=== PATIENT | female | born 1945 | race Caucasian/White ===

== ENCOUNTER 2018-05-15 11:17 | Inpatient (IN) | payer MEDICARE, OTHER ==
[2018-05-15] MEDS ORDERED: Alum Hydrox/Mag Hydrox/Simeth 15 ML, Lidocaine 2% 15 ML PO ONE ×2 (12:50)
[2018-05-15] MEDS ORDERED: Ondansetron 4 MG/2 ML SDV IVPUSH ONE (12:51)
--- NOTE | 2018-05-15 12:53 | EDM.PDOC ---
ED HPI GENERAL MEDICAL PROBLEM - General Chief Complaint: Lower Extremity Injury/Pain Stated Complaint: RT HIP PAIN, NO FALL/VOMITTING-PAIN MED RELATED? Time Seen by Provider: 05/15/18 12:33 Source of Information: Reports: Patient History Limitations: Reports: No Limitations - History of Present Illness INITIAL COMMENTS - FREE TEXT/NARRATIVE: 73 yo female presents to the ER c/o right hip pain and n/v. She was recently seen in [facility] for like symptoms, per pt she was dx with viral symdrome with left hip lymphedema. She was dced on hydrocodone after IV fluids per pt. Last fever 102 on Wednesday. She has been taking pain medication since visit last dose last evening. nausea with vomiting last 48 hours. pain continues in right hip. denies trauma to hip. - Related Data Allergies Allergy/AdvReac Type Severity Reaction Status Date / Time sulfamethoxazole Allergy Hives Verified 05/15/18 12:04 [From Bactrim] trimethoprim [From Bactrim] Allergy Hives Verified 05/15/18 12:04 Home Meds: Home Meds Aspirin 1 tab PO DAILY 05/15/18 [History] Hydrocodone/Acetaminophen [Hydrocodon-Acetaminophen 5-300] 1 tab PO Q6HR PRN [History] atorvaSTATin [Lipitor] 1 tab PO DAILY 05/15/18 [History] Past Medical History Musculoskeletal History: Reports: Back Pain, Chronic - Past Surgical History HEENT Surgical History: Reports: Tonsillectomy Social & Family History - Tobacco Use Smoking Status *Q: Never Smoker Review of Systems - Review of Systems Review Of Systems: See Below Respiratory: Denies: Shortness of Breath, Wheezing Cardiovascular: Denies: Chest Pain GI/Abdominal: Reports: Abdominal Pain, Nausea, Vomiting Musculoskeletal: Reports: Joint Pain Neurological: Denies: Confusion, Dizziness, Headache ED EXAM, GENERAL - Physical Exam Exam: See Below Exam Limited By: No Limitations General Appearance: Alert, WD/WN, Mild Distress Head: Atraumatic, Normocephalic Neck: Normal Inspection, Supple, Non-Tender, Full Range of Motion Respiratory/Chest: No Respiratory Distress, Lungs Clear GI/Abdominal: Normal Bowel Sounds, Soft, Tender (epigastric) Extremities: Leg Pain (right hip, ROM WNL). No: Joint Swelling Psychiatric: Normal Affect, Normal Mood Skin Exam: Warm, Dry, Intact Course - Vital Signs Last Recorded V/S: Last Vital Signs Temp 37.2 C 05/15/18 17:00 Pulse 75 05/15/18 17:39 Resp 20 05/15/18 17:39 BP 97/44 L 05/15/18 17:39 Pulse Ox 88 L 05/15/18 17:39 - Orders/Labs/Meds Orders: Active Orders 24 hr Category Date Time Status Ang Chest [CT] Stat Exams 05/15/18 16:23 Taken Chest 2V [CR] Stat Exams 05/15/18 15:37 Taken BABESIA MICROTI ANTIBODY PANEL Urgent Lab 05/15/18 14:13 Received HUMAN GRANULOCYTIC MASOOD-HGE Stat Lab 05/15/18 14:13 Received UA W/MICROSCOPIC [URIN] Stat Lab 05/15/18 12:53 Ordered Medication Orders Acetaminophen (Tylenol) 650 mg PO Q4H PRN PRN Reason: Pain (Mild 1-3)/fever Atorvastatin Calcium (Lipitor) 40 mg PO DAILY MAURA Hydromorphone HCl (Dilaudid) 0.25 mg IVPUSH Q2H PRN PRN Reason: Pain Ampicillin Sodium/Sulbactam (Sodium 1.5 gm/ Sodium Chloride) 50 mls @ 100 mls/ hr IV Q6HR MAURA Lactated Ringer's (Ringers, Lactated) 1,000 mls @ 250 mls/hr IV ASDIRECTED [facility] Stop: 05/15/18 21:17 Lactated Ringer's (Ringers, Lactated) 1,000 mls @ 125 mls/hr IV ASDIRECTED [facility] Iopamidol (Isovue-370 (76%)) 100 ml IV . DIRECTED [facility] Last Admin: 05/15/18 16:54 Dose: 80 ml Magnesium Hydroxide (Milk Of Magnesia) 30 ml PO Q12H PRN PRN Reason: Constipation Ondansetron HCl (Zofran) 4 mg IV Q4H PRN PRN Reason: Nausea/Vomiting Oxycodone HCl (Oxycodone) 5 mg PO Q4H PRN PRN Reason: Pain (moderate 4-6) Polyethylene Glycol (Miralax) 17 gm PO DAILY PRN PRN Reason: Constipation Senna/Docusate Sodium (Senna Plus) 1 tab PO BID PRN PRN Reason: Constipation Sodium Chloride (Saline Flush) 10 ml FLUSH ASDIRECTED PRN PRN Reason: Keep Vein Open Labs: Laboratory Tests 05/15/18 05/15/18 05/15/18 Range/Units 13:00 13:00 13:00 WBC 10.3 (4.5-11.0) K/uL RBC 4.33 (3.30-5.50) M/uL Hgb 13.5 (12.0-15.0) g/dL Hct 39.8 (36.0-48.0) % MCV 92 (80-98) fL MCH 31 (27-31) pg MCHC 34 (32-36) % Plt Count 141 L (150-400) K/uL Add Manual Diff Yes Neutrophils % (Manual) 72 H (36-66) % Band Neutrophils % 16 H (5-11) % Lymphocytes % (Manual) 5 L (24-44) % Monocytes % (Manual) 6 (2-6) % Puncture Site ABG pH (7.350-7.450) ABG pCO2 (35.0-42.0) mmHg ABG pO2 (75.0-100.0) mmHg ABG HCO3 (22.0-26.0) mmol/L ABG Total CO2 (21.0-25.0) mmol/L ABG O2 Saturation (95.0-98.0) % ABG O2 Content (15.0-23.0) %vol ABG Base Excess mm/L ABG Hemoglobin (12.0-16.0) g/dL ABG Oxyhemoglobin % ABG Carboxyhemoglobin (0.0-1.6) % ABG Methemoglobin % Nick Test O2 Delivery Device Sodium (140-148) mmol/L Potassium (3.6-5.2) mmol/L Chloride (100-108) mmol/L Carbon Dioxide (21-32) mmol/L Anion Gap (5.0-14.0) mmol/L BUN (7-18) mg/dL Creatinine (0.6-1.0) mg/dL Est Cr Clr Drug Dosing mL/min Estimated GFR (MDRD) (>60) Glucose (74-106) mg/dL Lactic Acid 1.9 (0.4-2.0) mmol/L Calcium (8.5-10.1) mg/dL Total Bilirubin (0.2-1.0) mg/dL AST (15-37) U/L ALT (12-78) U/L Alkaline Phosphatase (46-116) U/L C-Reactive Protein 22.01 H (0.0-0.3) mg/dL Total Protein (6.4-8.2) g/dL Albumin (3.4-5.0) g/dL Globulin (2.3-3.5) g/dL Albumin/Globulin Ratio (1.2-2.2) Lipase (73-393) U/L 05/15/18 05/15/18 05/15/18 Range/Units 14:06 16:22 16:22 WBC (4.5-11.0) K/uL RBC (3.30-5.50) M/uL Hgb (12.0-15.0) g/dL Hct (36.0-48.0) % MCV (80-98) fL MCH (27-31) pg MCHC (32-36) % Plt Count (150-400) K/uL Add Manual Diff Neutrophils % (Manual) (36-66) % Band Neutrophils % (5-11) % Lymphocytes % (Manual) (24-44) % Monocytes % (Manual) (2-6) % Puncture Site Lt radial ABG pH 7.454 H (7.350-7.450) ABG pCO2 34.0 L (35.0-42.0) mmHg ABG pO2 54.6 L (75.0-100.0) mmHg ABG HCO3 23.5 (22.0-26.0) mmol/L ABG Total CO2 21.1 (21.0-25.0) mmol/L ABG O2 Saturation 88.7 L (95.0-98.0) % ABG O2 Content 14.7 L (15.0-23.0) %vol ABG Base Excess 0.5 mm/L ABG Hemoglobin 12.0 (12.0-16.0) g/dL ABG Oxyhemoglobin 87.3 % ABG Carboxyhemoglobin 1.2 (0.0-1.6) % ABG Methemoglobin 0.4 % Nick Test Passed O2 Delivery Device Nasal cannula Sodium 131 L (140-148) mmol/L Potassium 4.1 (3.6-5.2) mmol/L Chloride 96 L (100-108) mmol/L Carbon Dioxide 25 (21-32) mmol/L Anion Gap 14.1 H (5.0-14.0) mmol/L BUN 18 (7-18) mg/dL Creatinine 1.2 H (0.6-1.0) mg/dL Est Cr Clr Drug Dosing 44.29 mL/min Estimated GFR (MDRD) 44 L (>60) Glucose 132 H (74-106) mg/dL Lactic Acid (0.4-2.0) mmol/L Calcium 8.9 (8.5-10.1) mg/dL Total Bilirubin 2.0 H (0.2-1.0) mg/dL AST 72 H (15-37) U/L ALT 67 (12-78) U/L Alkaline Phosphatase 263 H (46-116) U/L C-Reactive Protein (0.0-0.3) mg/dL Total Protein 6.8 (6.4-8.2) g/dL Albumin 2.7 L (3.4-5.0) g/dL Globulin 4.1 H (2.3-3.5) g/dL Albumin/Globulin Ratio 0.7 L (1.2-2.2) Lipase 124 (73-393) U/L Meds: Medications Generic Name Dose Route Start Last Admin Trade Name Freq PRN Reason Stop Dose Admin Acetaminophen 650 mg 05/15/18 17:16 Tylenol PO Q4H PRN Pain (Mild 1-3)/fever Atorvastatin Calcium 40 mg 05/16/18 09:00 Lipitor PO DAILY MAURA Hydromorphone HCl 0.25 mg 05/15/18 17:16 Dilaudid IVPUSH Q2H PRN Pain Ampicillin Sodium/Sulbactam 50 mls @ 100 mls/hr 05/15/18 18:00 Sodium 1.5 gm/ Sodium Chloride IV Q6HR MAURA Lactated Ringer's 1,000 mls @ 250 mls/hr 05/15/18 17:16 Ringers, Lactated IV 05/15/18 21:17 ASDIRECTED MAURA Lactated Ringer's 1,000 mls @ 125 mls/hr 05/15/18 20:45 Ringers, Lactated IV ASDIRECTED MAURA Iopamidol 100 ml 05/15/18 16:30 05/15/18 16:54 Isovue-370 (76%) IV 80 ml . DIRECTED MAURA Administration Magnesium Hydroxide 30 ml 05/15/18 17:16 Milk Of Magnesia PO Q12H PRN Constipation Ondansetron HCl 4 mg 05/15/18 17:16 Zofran IV Q4H PRN Nausea/Vomiting Oxycodone HCl 5 mg 05/15/18 17:16 Oxycodone PO Q4H PRN Pain (moderate 4-6) Polyethylene Glycol 17 gm 05/15/18 17:16 Miralax PO DAILY PRN Constipation Senna/Docusate Sodium 1 tab 05/15/18 17:16 Senna Plus PO BID PRN Constipation Sodium Chloride 10 ml 05/15/18 17:16 Saline Flush FLUSH ASDIRECTED PRN Keep Vein Open Discontinued Medications Generic Name Dose Route Start Last Admin Trade Name Freq PRN Reason Stop Dose Admin Al Hydroxide/Mg Hydroxide 15 0 ml 05/15/18 12:50 05/15/18 13:05 ml/ Lidocaine HCl 15 ml PO 05/15/18 12:51 30 ml ONETIME ONE Administration Sodium Chloride 1,000 mls @ 999 mls/hr 05/15/18 13:00 05/15/18 13:05 Normal Saline IV 999 mls/hr ASDIRECTED MAURA Administration Sodium Chloride 100 mls @ 3 mls/sec 05/15/18 16:30 05/15/18 16:54 Normal Saline IV 3 mls/sec ASDIRECTED MAURA Administration Ketorolac Tromethamine 30 mg 05/15/18 14:40 05/15/18 15:00 Toradol IVPUSH 05/15/18 14:41 30 mg ONETIME ONE Administration Ondansetron HCl 4 mg 05/15/18 12:51 05/15/18 13:05 Zofran IVPUSH 05/15/18 12:52 4 mg ONETIME ONE Administration Departure - Departure Time of Disposition: 17:47 Disposition: Admitted As Inpatient 67 Condition: Fair Clinical Impression: Dehydration syndrome, Hyponatremia - Discharge Information - My Orders Last 24 Hours: My Active Orders 05/15/18 12:53 UA W/MICROSCOPIC [URIN] Stat 05/15/18 14:13 BABESIA MICROTI ANTIBODY PANEL Urgent HUMAN GRANULOCYTIC MASOOD-HGE Stat 05/15/18 15:37 Chest 2V [CR] Stat - Assessment/Plan Last 24 Hours: My Active Orders 05/15/18 12:53 UA W/MICROSCOPIC [URIN] Stat 05/15/18 14:13 BABESIA MICROTI ANTIBODY PANEL Urgent HUMAN GRANULOCYTIC MASOOD-HGE Stat 05/15/18 15:37 Chest 2V [CR] Stat
[2018-05-15] MEDS ORDERED: Sodium Chloride 0.9% 1,000 ML IV SCH (13:00)
[2018-05-15] MEDS ORDERED: Ketorolac 30 MG/ML SDV IVPUSH ONE (14:40)
[2018-05-15] MEDS ORDERED: Iopamidol 755 Mg/ML 100 ML Bottle IV SCH (16:30)
[2018-05-15] MEDS ORDERED: Sodium Chloride 0.9% 100 ML IV SCH (16:30)
[2018-05-15] MEDS ORDERED: Ondansetron 4 MG/2 ML SDV IV PRN (17:16)
[2018-05-15] MEDS ORDERED: oxyCODONE 5 MG Tab PO PRN (17:16)
[2018-05-15] MEDS ORDERED: Lactated Ringers 1,000 ML IV SCH (17:16)
[2018-05-15] MEDS ORDERED: Sodium Chloride 0.9% 10 ML Syringe FLUSH PRN (17:16)
[2018-05-15] MEDS ORDERED: Magnesium Hydroxide 400 MG/5 ML Susp 30 ML Cup PO PRN (17:16)
[2018-05-15] MEDS ORDERED: HYDROmorphone 0.5 MG/0.5 ML Syringe IVPUSH PRN (17:16)
[2018-05-15] MEDS: Ampicillin/Sulbactam Na 1.5 GM in Sodium Chloride 0.9% 50 ML IV SCH ×2 (18:29→21:58)
--- NOTE | 2018-05-15 18:50 | PCM.HP ---
H&P History of Present Illness - General Date of Service: 05/15/18 Admit Problem/Dx: Admission Diagnosis/Problem Admission Diagnosis/Problem Nausea and vomiting Source of Information: Patient, Family, Provider History Limitations: Reports: No Limitations - History of Present Illness Initial Comments - Free Text/Narative: Ms. Mancia is a 73-year-old woman who was admitted through the emergency department with hypoxia, nausea vomiting, and mild elevation in bilirubin level. She's not felt well over the past 3 days, with progressive symptoms. 3 days ago she was seen and evaluated in the emergency department in [facility]. At that time she did have a fever of 102. White blood cell count was normal and CT scan of the abdomen and pelvis showed evidence of mesenteric lymphadenopathy but no other obvious abnormalities. Laboratory tests at that time were within normal range. She also noted symptoms of right flank, lower lateral right chest wall pain. She had strained to pull a hose the previous day and felt that it may be muscular in nature related to that activity. She was felt to have a probable viral syndrome and discharged home. She felt worse through the day with increased nausea and vomiting and presented to urgent care later that evening. She was felt to be dehydrated and was admitted transiently for IV fluids. The following day on Wednesday they left [facility] and came to [place] for a family reunion. She has not felt well but has had no recurrent temperature elevations. Nausea vomiting as well as the right flank chest wall pain has persisted. In addition to nausea vomiting is also felt somewhat bloated, she has not had a bowel movement over the past 3 days, although her oral intake has been minimal. She presented to the emergency department here in [place] for further evaluation. She is noted to be significantly hypoxic with oxygen saturations on room air in the 60s and 70s. Chest x-ray was obtained and showed evidence of bilateral pulmonary infiltrates. CT scan of the chest with PE protocol has been obtained showing no evidence of pulmonary emboli, but did document bilateral interstitial infiltrates, infectious versus inflammatory. Also noted was mediastinal adenopathy. Her white blood cell count remains normal but she does have an obvious left shift with 16% bands. CRP is significantly elevated at 22, lactic acid level is within normal range. 9 Pain Score (Numeric/FACES): 1 - Related Data Allergies/Adverse Reactions: Allergies Allergy/AdvReac Type Severity Reaction Status Date / Time sulfamethoxazole Allergy Hives Verified 05/15/18 12:04 [From Bactrim] trimethoprim [From Bactrim] Allergy Hives Verified 05/15/18 12:04 Home Medications: Home Meds Aspirin 1 tab PO DAILY 05/15/18 [History] Hydrocodone/Acetaminophen [Hydrocodon-Acetaminophen 5-300] 1 tab PO Q6HR PRN [History] atorvaSTATin [Lipitor] 1 tab PO DAILY 05/15/18 [History] Past Medical History Musculoskeletal History: Reports: Back Pain, Chronic - Infectious Disease History Infectious Disease History: Reports: Chicken Pox, Measles, Mumps - Past Surgical History HEENT Surgical History: Reports: Tonsillectomy Social & Family History - Family History Respiratory: Reports: COPD GI: Reports: Other (See Below) Other GI Family History: "bleeding ulcers : Reports: Renal Calculus Musculoskeletal: Reports: Arthritis Neurological: Reports: Alzheimers Disease - Tobacco Use Smoking Status *Q: Never Smoker - Recreational Drug Use Recreational Drug Use: No H&P Review of Systems - Review of Systems: Review Of Systems: See Below General: Reports: Malaise, Weakness, Fatigue, Decreased Appetite. Denies: Fever , Chills, Diaphoresis HEENT: Reports: No Symptoms Pulmonary: Reports: Shortness of Breath. Denies: Wheezing, Cough, Sputum, Hemoptysis Cardiovascular: Reports: Dyspnea on Exertion. Denies: Chest Pain, Palpitations , Orthopnea, PND, Edema, Lightheadedness Gastrointestinal: Reports: Anorexia, Constipation, Distension, Nausea, Vomiting. Denies: Black Stool, Bloody Stool, Diarrhea, Difficulty Swallowing Genitourinary: Reports: No Symptoms Musculoskeletal: Reports: Other (Right flank and chest wall pain) Skin: Reports: No Symptoms Psychiatric: Reports: No Symptoms Neurological: Reports: No Symptoms Hematologic/Lymphatic: Reports: No Symptoms Immunologic: Reports: No Symptoms Exam - Exam Exam: See Below - Vital Signs Vital Signs: Last Vital Signs Temp 99 F 05/15/18 17:00 Pulse 77 05/15/18 18:33 Resp 26 H 05/15/18 18:33 BP 97/43 L 05/15/18 18:33 Pulse Ox 92 L 05/15/18 18:33 Weight: 202 lb 12.8 oz - Exam Quality Assessment: Supplemental Oxygen, DVT Prophylaxis General: Alert, Oriented, Cooperative, Mild Distress HEENT: Conjunctiva Clear, Hearing Intact, Mucosa Moist & [place], Normal Nasal Septum, Posterior Pharynx Clear, Pupils Equal Neck: Supple, Trachea Midline, +2 Carotid Pulse wo Bruit Lungs: Normal Respiratory Effort, Crackles Cardiovascular: Regular Rate, Regular Rhythm, Normal S1, Normal S2. No: Systolic Murmur, Diastolic Murmur GI/Abdominal Exam: Soft, Non-Tender, No Organomegaly, No Distention Back Exam: Normal Inspection, Full Range of Motion Extremities: Non-Tender, No Pedal Edema Skin: Warm, Dry, Intact Neurological: Cranial Nerves Intact, Strength Equal Bilateral, Normal Speech, Normal Tone, Sensation Intact. No: Focal Deficit Neuro Extensive - Mental Status: Alert, Oriented x3, Normal Mood/Affect, Normal Cognition, Memory Intact - Patient Data Lab Results Last 24 hrs: Laboratory Results - last 24 hr 05/15/18 05/15/18 05/15/18 Range/Units 13:00 13:00 13:00 WBC 10.3 (4.5-11.0) K/uL RBC 4.33 (3.30-5.50) M/uL Hgb 13.5 (12.0-15.0) g/dL Hct 39.8 (36.0-48.0) % MCV 92 (80-98) fL MCH 31 (27-31) pg MCHC 34 (32-36) % Plt Count 141 L (150-400) K/uL Add Manual Diff Yes Neutrophils % (Manual) 72 H (36-66) % Band Neutrophils % 16 H (5-11) % Lymphocytes % (Manual) 5 L (24-44) % Monocytes % (Manual) 6 (2-6) % Puncture Site ABG pH (7.350-7.450) ABG pCO2 (35.0-42.0) mmHg ABG pO2 (75.0-100.0) mmHg ABG HCO3 (22.0-26.0) mmol/L ABG Total CO2 (21.0-25.0) mmol/L ABG O2 Saturation (95.0-98.0) % ABG O2 Content (15.0-23.0) %vol ABG Base Excess mm/L ABG Hemoglobin (12.0-16.0) g/dL ABG Oxyhemoglobin % ABG Carboxyhemoglobin (0.0-1.6) % ABG Methemoglobin % Nick Test O2 Delivery Device Sodium (140-148) mmol/L Potassium (3.6-5.2) mmol/L Chloride (100-108) mmol/L Carbon Dioxide (21-32) mmol/L Anion Gap (5.0-14.0) mmol/L BUN (7-18) mg/dL Creatinine (0.6-1.0) mg/dL Est Cr Clr Drug Dosing mL/min Estimated GFR (MDRD) (>60) Glucose (74-106) mg/dL Lactic Acid 1.9 (0.4-2.0) mmol/L Calcium (8.5-10.1) mg/dL Total Bilirubin (0.2-1.0) mg/dL AST (15-37) U/L ALT (12-78) U/L Alkaline Phosphatase (46-116) U/L C-Reactive Protein 22.01 H (0.0-0.3) mg/dL Total Protein (6.4-8.2) g/dL Albumin (3.4-5.0) g/dL Globulin (2.3-3.5) g/dL Albumin/Globulin Ratio (1.2-2.2) Lipase (73-393) U/L TSH, Ultra Sensitive (0.358-3.740) uIU/mL 05/15/18 05/15/18 05/15/18 Range/Units 14:06 16:22 16:22 WBC (4.5-11.0) K/uL RBC (3.30-5.50) M/uL Hgb (12.0-15.0) g/dL Hct (36.0-48.0) % MCV (80-98) fL MCH (27-31) pg MCHC (32-36) % Plt Count (150-400) K/uL Add Manual Diff Neutrophils % (Manual) (36-66) % Band Neutrophils % (5-11) % Lymphocytes % (Manual) (24-44) % Monocytes % (Manual) (2-6) % Puncture Site Lt radial ABG pH 7.454 H (7.350-7.450) ABG pCO2 34.0 L (35.0-42.0) mmHg ABG pO2 54.6 L (75.0-100.0) mmHg ABG HCO3 23.5 (22.0-26.0) mmol/L ABG Total CO2 21.1 (21.0-25.0) mmol/L ABG O2 Saturation 88.7 L (95.0-98.0) % ABG O2 Content 14.7 L (15.0-23.0) %vol ABG Base Excess 0.5 mm/L ABG Hemoglobin 12.0 (12.0-16.0) g/dL ABG Oxyhemoglobin 87.3 % ABG Carboxyhemoglobin 1.2 (0.0-1.6) % ABG Methemoglobin 0.4 % Nick Test Passed O2 Delivery Device Nasal cannula Sodium 131 L (140-148) mmol/L Potassium 4.1 (3.6-5.2) mmol/L Chloride 96 L (100-108) mmol/L Carbon Dioxide 25 (21-32) mmol/L Anion Gap 14.1 H (5.0-14.0) mmol/L BUN 18 (7-18) mg/dL Creatinine 1.2 H (0.6-1.0) mg/dL Est Cr Clr Drug Dosing 44.29 mL/min Estimated GFR (MDRD) 44 L (>60) Glucose 132 H (74-106) mg/dL Lactic Acid (0.4-2.0) mmol/L Calcium 8.9 (8.5-10.1) mg/dL Total Bilirubin 2.0 H (0.2-1.0) mg/dL AST 72 H (15-37) U/L ALT 67 (12-78) U/L Alkaline Phosphatase 263 H (46-116) U/L C-Reactive Protein (0.0-0.3) mg/dL Total Protein 6.8 (6.4-8.2) g/dL Albumin 2.7 L (3.4-5.0) g/dL Globulin 4.1 H (2.3-3.5) g/dL Albumin/Globulin Ratio 0.7 L (1.2-2.2) Lipase 124 (73-393) U/L TSH, Ultra Sensitive (0.358-3.740) uIU/mL 05/15/18 Range/Units 17:16 WBC (4.5-11.0) K/uL RBC (3.30-5.50) M/uL Hgb (12.0-15.0) g/dL Hct (36.0-48.0) % MCV (80-98) fL MCH (27-31) pg MCHC (32-36) % Plt Count (150-400) K/uL Add Manual Diff Neutrophils % (Manual) (36-66) % Band Neutrophils % (5-11) % Lymphocytes % (Manual) (24-44) % Monocytes % (Manual) (2-6) % Puncture Site ABG pH (7.350-7.450) ABG pCO2 (35.0-42.0) mmHg ABG pO2 (75.0-100.0) mmHg ABG HCO3 (22.0-26.0) mmol/L ABG Total CO2 (21.0-25.0) mmol/L ABG O2 Saturation (95.0-98.0) % ABG O2 Content (15.0-23.0) %vol ABG Base Excess mm/L ABG Hemoglobin (12.0-16.0) g/dL ABG Oxyhemoglobin % ABG Carboxyhemoglobin (0.0-1.6) % ABG Methemoglobin % Nick Test O2 Delivery Device Sodium (140-148) mmol/L Potassium (3.6-5.2) mmol/L Chloride (100-108) mmol/L Carbon Dioxide (21-32) mmol/L Anion Gap (5.0-14.0) mmol/L BUN (7-18) mg/dL Creatinine (0.6-1.0) mg/dL Est Cr Clr Drug Dosing mL/min Estimated GFR (MDRD) (>60) Glucose (74-106) mg/dL Lactic Acid (0.4-2.0) mmol/L Calcium (8.5-10.1) mg/dL Total Bilirubin (0.2-1.0) mg/dL AST (15-37) U/L ALT (12-78) U/L Alkaline Phosphatase (46-116) U/L C-Reactive Protein (0.0-0.3) mg/dL Total Protein (6.4-8.2) g/dL Albumin (3.4-5.0) g/dL Globulin (2.3-3.5) g/dL Albumin/Globulin Ratio (1.2-2.2) Lipase (73-393) U/L TSH, Ultra Sensitive 0.730 (0.358-3.740) uIU/mL Result Diagrams: 05/15/18 13:00 05/15/18 14:06 *Q Meaningful Use (ADM) - VTE Risk Assess *Q Each Risk Factor Represents 1 Point: Obesity ( BMI > 25 kg/m2) Total Score 1 Point Risk Factors: 1 Each Risk Factor Represents 2 Points: Age 60 - 74 Years Total Score 2 Point Risk Factors: 2 Each Risk Factor Represents 3 Points: None Total Score 3 Point Risk Factors: 0 Each Risk Factor Represents 5 Points: None Total Score 5 Point Risk Factors: 0 Venous Thromboembolism Risk Factor Score *Q: 3 Problem List Initiated/Reviewed/Updated: Yes Orders Last 24hrs: Active Orders 24 hr Category Date Time Status Patient Status [ADT] Routine ADT 05/15/18 17:16 Active Ambulate [RC] QID Care 05/15/18 17:16 Active Cardiac Monitoring [RC] .As Directed Care 05/15/18 17:16 Active EKG Documentation Completion [RC] ASDIRECTED Care 05/15/18 17:16 Active Height and Weight [RC] DAILY Care 05/15/18 17:16 Active Intake and Output [RC] QSHIFT Care 05/15/18 17:16 Active Notify Provider Consults [RC] ASDIRECTED Care 05/15/18 17:16 Active Notify Provider Vital Signs [RC] ASDIRECTED Care 05/15/18 17:16 Active Oxygen Therapy [RC] PRN Care 05/15/18 17:16 Active Peripheral IV Care [RC] . DIRECTED Care 05/15/18 17:16 Active Pulse Oximetry [RC] CONTINUOUS Care 05/15/18 17:16 Active Up With Assistance [RC] ASDIRECTED Care 05/15/18 17:16 Active Up to Chair [RC] QID Care 05/15/18 17:16 Active VTE/DVT Education [RC] Per Unit Routine Care 05/15/18 17:16 Active Vital Signs [RC] Q4H Care 05/15/18 17:16 Active Consult to Physician [CONS] Routine Cons 05/15/18 17:16 Ordered Nothing per Oral Now Diet [DIET] Diet 05/15/18 Lunch Active Ang Chest [CT] Stat Exams 05/15/18 16:23 Taken Chest 2V [CR] Stat Exams 05/15/18 15:37 Taken Cholangiopancreatography [MR] Urgent Exams 05/16/18 08:00 Ordered Cholescintigraphy w Pharm Int [NM] Urgent Exams 05/16/18 08:00 Ordered Echo Comp wo Cont [US] Urgent Exams 05/16/18 08:00 Ordered BABESIA MICROTI ANTIBODY PANEL Urgent Lab 05/15/18 14:13 Received BILIRUBIN DIRECT [CHEM] AM Lab 05/16/18 05:11 Ordered CBC WITH AUTO DIFF [HEME] AM Lab 05/16/18 05:11 Ordered COMPREHENSIVE METABOLIC PN,CMP [CHEM] AM Lab 05/16/18 05:11 Ordered CULTURE BLOOD [BC] Stat Lab 05/15/18 17:20 Received CULTURE BLOOD [BC] Stat Lab 05/15/18 17:30 Received HUMAN GRANULOCYTIC MASOOD-HGE Stat Lab 05/15/18 14:13 Received MAGNESIUM [CHEM] AM Lab 05/16/18 05:11 Ordered TROPONIN I [CHEM] Stat Lab 05/15/18 18:19 Received UA W/MICROSCOPIC [URIN] Stat Lab 05/15/18 12:53 Ordered Acetaminophen [Tylenol] Med 05/15/18 17:16 Active 650 mg PO Q4H PRN Ampicillin/Sulbactam Na [Unasyn] 1.5 gm Med 05/15/18 18:00 Active Sodium Chloride 0.9% [Normal Saline] 50 ml IV Q6HR Docusate Sodium/Sennosides [Senna Plus] Med 05/15/18 17:16 Active 1 tab PO BID PRN HYDROmorphone [Dilaudid] Med 05/15/18 17:16 Active 0.25 mg IVPUSH Q2H PRN Iopamidol [Isovue-370 (76%)] Med 05/15/18 16:30 Active 100 ml IV . DIRECTED Lactated Ringers [Ringers, Lactated] 1,000 ml Med 05/15/18 17:16 Active IV ASDIRECTED Lactated Ringers [Ringers, Lactated] 1,000 ml Med 05/15/18 20:45 Active IV ASDIRECTED Levofloxacin/Dextrose 5%-Water [Levaquin in D5W 750 MG/ Med 05/15/18 18:45 Ordered 150 ML] 750 mg Premix Bag 1 bag IV Q24H Magnesium Hydroxide [Milk of Magnesia] Med 05/15/18 17:16 Active 30 ml PO Q12H PRN Ondansetron [Zofran] Med 05/15/18 17:16 Active 4 mg IV Q4H PRN Polyethylene Glycol 3350 [MiraLAX] Med 05/15/18 17:16 Active 17 gm PO DAILY PRN Sodium Chloride 0.9% [Saline Flush] Med 05/15/18 17:16 Active 10 ml FLUSH ASDIRECTED PRN atorvaSTATin [Lipitor] Med 05/16/18 09:00 Active 40 mg PO DAILY oxyCODONE Med 05/15/18 17:16 Active 5 mg PO Q4H PRN Blood Culture x2 Reflex Set [OM.PC] Stat Oth 05/15/18 17:16 Ordered Peripheral IV Insertion Adult [OM.PC] Routine Oth 05/15/18 17:16 Ordered Sequential Compression Device [OM.PC] Per Unit Routine Oth 05/15/18 17:16 Ordered Resuscitation Status Routine Resus Stat 05/15/18 16:25 Ordered EKG 12 Lead [EK] Stat Ther 05/15/18 17:16 Ordered Medication Orders Acetaminophen (Tylenol) 650 mg PO Q4H PRN PRN Reason: Pain (Mild 1-3)/fever Atorvastatin Calcium (Lipitor) 40 mg PO DAILY [facility] Hydromorphone HCl (Dilaudid) 0.25 mg IVPUSH Q2H PRN PRN Reason: Pain Ampicillin Sodium/Sulbactam (Sodium 1.5 gm/ Sodium Chloride) 50 mls @ 100 mls/ hr IV Q6HR [facility] Last Admin: 05/15/18 18:29 Dose: 100 mls/hr Lactated Ringer's (Ringers, Lactated) 1,000 mls @ 250 mls/hr IV ASDIRECTED MAURA Stop: 05/15/18 21:17 Last Admin: 05/15/18 17:59 Dose: 250 mls/hr Lactated Ringer's (Ringers, Lactated) 1,000 mls @ 125 mls/hr IV ASDIRECTED MAURA Levofloxacin/Dextrose 750 mg/ (Premix) 150 mls @ 100 mls/hr IV Q24H [facility] Iopamidol (Isovue-370 (76%)) 100 ml IV . DIRECTED [facility] Last Admin: 05/15/18 16:54 Dose: 80 ml Magnesium Hydroxide (Milk Of Magnesia) 30 ml PO Q12H PRN PRN Reason: Constipation Ondansetron HCl (Zofran) 4 mg IV Q4H PRN PRN Reason: Nausea/Vomiting Oxycodone HCl (Oxycodone) 5 mg PO Q4H PRN PRN Reason: Pain (moderate 4-6) Polyethylene Glycol (Miralax) 17 gm PO DAILY PRN PRN Reason: Constipation Senna/Docusate Sodium (Senna Plus) 1 tab PO BID PRN PRN Reason: Constipation Sodium Chloride (Saline Flush) 10 ml FLUSH ASDIRECTED PRN PRN Reason: Keep Vein Open Assessment/Plan Comment:: ASSESSMENT AND PLAN BILATERAL INTERSTITIAL INFILTRATES WITH HYPOXIA-she denies significant symptoms of shortness of breath especially at rest, oxygen saturation and blood gases show evidence of obvious hypoxia. CT scan of the chest shows no evidence of pulmonary emboli but does document bilateral infiltrates, infectious versus inflammatory. CT scan also suggests cardiac enlargement. -Blood cultures pending -Empiric IV antibiotic therapy with Unasyn and levofloxacin, pending culture results and further evaluation -Supplemental oxygen as needed -Echocardiogram to assess left ventricular function and valvular status -May require further evaluation including bronchoscopy NAUSEA AND VOMITING ASSOCIATED WITH ELEVATED BILIRUBIN-CT scan obtained 3 days ago showed no obvious abnormalities other than mesenteric lymphadenopathy. Suspect that there may be a global plop process causing pulmonary findings as well as abdominal symptoms. White blood cell count is within normal range but there is a left shift with elevated bands. CRP is significantly elevated at 22. Bilirubin and alkaline phosphatase level are mildly to moderately elevated. In addition of the nausea vomiting she also feels somewhat bloated. -Dr. Curry to see for surgical consult in a.m. -CCK stimulated HIDA scan -MRCP -Unasyn 1.5 g IV every 6 hours, pending culture results and further evaluation SLIGHT ELEVATION IN TROPONIN-likely secondary to demand ischemia in the setting of hypoxia -Recheck troponin level tonight and again in a.m. CHRONIC KIDNEY DISEASE STAGE III-renal function mildly worse than it was 3 days ago when seen in [place] -IV fluids for hydration -Monitor urine output and renal function MAINTENANCE ISSUES -DVT prophylaxis; SCUDs -GI prophylaxis; not indicated -Parmar catheter; not indicated -Nutrition; nothing by mouth -Nicotine dependence; not required CODE STATUS-FULL CODE ADMISSION STATUS-patient will be admitted to inpatient status, expect at least a 2 night hospital stay for evaluation and management of problems as outlined above. At the time of this admission I do not reasonably expected evaluation and management of this problem will require more than a 96 hour hospital stay. DISPOSITION-anticipate discharge to home after the hospital stay. PRIMARY CARE PROVIDER-patient is from [facility] and receives her healthcare there
[2018-05-15] MEDS ORDERED: Levofloxacin/Dextrose 5%-Water 750 MG in Premix Bag 1 BAG IV SCH (19:00)
[2018-05-15] MEDS: Acetaminophen 325 MG Tab PO PRN (21:48)
[2018-05-15] MEDS: Polyethylene Glycol 3350 Powder 17 GM Packet PO PRN (21:49)
[2018-05-15] MEDS: Hydrocortisone Sodium Succinate 100 MG/2 ML SDV IVPUSH SCH (21:53)
[2018-05-15] MEDS: Lactated Ringers 1,000 ML IV SCH (22:10)
[2018-05-16] MEDS: Hydrocortisone Sodium Succinate 100 MG/2 ML SDV IVPUSH SCH ×3 (03:55→21:18)
[2018-05-16] MEDS: Ampicillin/Sulbactam Na 1.5 GM in Sodium Chloride 0.9% 50 ML IV SCH ×4 (03:55→21:17)
[2018-05-16] MEDS: Lactated Ringers 1,000 ML IV SCH (05:41)
--- NOTE | 2018-05-16 09:22 | CR ---
CHEST: 2 view CLINICAL HISTORY:Nausea and vomiting COMPARISON:None FINDINGS: There are diffuse bilateral interstitial infiltrates. There is vascular cephalization. Pat ient has small bibasal effusions, left greater than right.. IMPRESSION: Diffuse interstitial infiltrates are likely pulmonary edema from CHF Small bibasal effusions Short-term follow-up recommended after course of treatment
--- NOTE | 2018-05-16 09:22 | PCM.PN ---
- General Info Date of Service: 05/16/18 Functional Status: Reports: Pain Controlled - Review of Systems General: Denies: Fever HEENT: Denies: Headaches Pulmonary: Reports: Shortness of Breath, Cough Gastrointestinal: Denies: Abdominal Pain Systems Review Comment:: There were no acute events overnight. Patient is feeling better this morning than at the time of admission yesterday. Her abdominal pain and bloating has resolved. She does not report any headache at this time. Shortness of breath has improved but she does continue to require supplemental oxygen. She has not had any fevers. MRCP did not show evidence for obstruction or abnormality. HIDA scan did show low ejection fraction consistent with biliary dyskinesia. Preliminary echocardiogram read shows normal left ventricular function with no significant abnormalities. - Patient Data Vitals - Most Recent: Last Vital Signs Temp 35.7 C 05/16/18 07:35 Pulse 69 05/16/18 07:35 Resp 20 05/16/18 07:35 BP 138/64 05/16/18 07:35 Pulse Ox 95 05/16/18 07:35 Weight - Most Recent: 94.801 kg I&O - Last 24 Hours: Intake & Output 05/15/18 05/16/18 05/16/18 22:59 06:59 14:59 Intake Total 1680 1050 Output Total 433 926 6820 Balance 1380 350 -1100 Lab Results Last 24 Hours: Laboratory Results - last 24 hr 05/15/18 05/15/18 05/15/18 Range/Units 12:53 13:00 13:00 WBC 10.3 (4.5-11.0) K/uL RBC 4.33 (3.30-5.50) M/uL Hgb 13.5 (12.0-15.0) g/dL Hct 39.8 (36.0-48.0) % MCV 92 (80-98) fL MCH 31 (27-31) pg MCHC 34 (32-36) % Plt Count 141 L (150-400) K/uL Neut % (Auto) (36-66) % Lymph % (Auto) (24-44) % [place] % (Auto) (2-6) % Eos % (Auto) (2-4) % Baso % (Auto) (0-1) % Add Manual Diff Yes Neutrophils % (Manual) 72 H (36-66) % Band Neutrophils % 16 H (5-11) % Lymphocytes % (Manual) 5 L (24-44) % Monocytes % (Manual) 6 (2-6) % ESR (0-25) mm/hr Puncture Site ABG pH (7.350-7.450) ABG pCO2 (35.0-42.0) mmHg ABG pO2 (75.0-100.0) mmHg ABG HCO3 (22.0-26.0) mmol/L ABG Total CO2 (21.0-25.0) mmol/L ABG O2 Saturation (95.0-98.0) % ABG O2 Content (15.0-23.0) %vol ABG Base Excess mm/L ABG Hemoglobin (12.0-16.0) g/dL ABG Oxyhemoglobin % ABG Carboxyhemoglobin (0.0-1.6) % ABG Methemoglobin % Nick Test O2 Delivery Device Sodium (140-148) mmol/L Potassium (3.6-5.2) mmol/L Chloride (100-108) mmol/L Carbon Dioxide (21-32) mmol/L Anion Gap (5.0-14.0) mmol/L BUN (7-18) mg/dL Creatinine (0.6-1.0) mg/dL Est Cr Clr Drug Dosing mL/min Estimated GFR (MDRD) (>60) Glucose (74-106) mg/dL Lactic Acid (0.4-2.0) mmol/L Calcium (8.5-10.1) mg/dL Magnesium (1.8-2.4) mg/dL Total Bilirubin (0.2-1.0) mg/dL Direct Bilirubin (0.0-0.2) mg/dL AST (15-37) U/L ALT (12-78) U/L Alkaline Phosphatase (46-116) U/L Troponin I (0.000-0.056) ng/mL C-Reactive Protein 22.01 H (0.0-0.3) mg/dL Total Protein (6.4-8.2) g/dL Albumin (3.4-5.0) g/dL Globulin (2.3-3.5) g/dL Albumin/Globulin Ratio (1.2-2.2) Lipase (73-393) U/L TSH, Ultra Sensitive (0.358-3.740) uIU/mL Urine Color Yellow Urine Appearance Cloudy Urine pH 5.0 (4.5-8.0) Ur Specific Elmer 1.005 L (1.008-1.030) Urine Protein 30 H (NEGATIVE) mg/dL Urine Glucose (UA) Normal (NEGATIVE) mg/dL Urine Ketones Negative (NEGATIVE) mg/dL Urine Occult Blood Moderate (NEGATIVE) Urine Nitrite Negative (NEGATIVE) Urine Bilirubin Small (NEGATIVE) Urine Urobilinogen 4 (NORMAL) mg/dL Ur Leukocyte Esterase Negative (NEGATIVE) Urine RBC 5-10 H (0-5) Urine WBC 0-5 (0-5) Ur Epithelial Cells Few Amorphous Sediment Few Urine Bacteria Rare Urine Mucus Few 05/15/18 05/15/18 05/15/18 Range/Units 13:00 14:06 16:22 WBC (4.5-11.0) K/uL RBC (3.30-5.50) M/uL Hgb (12.0-15.0) g/dL Hct (36.0-48.0) % MCV (80-98) fL MCH (27-31) pg MCHC (32-36) % Plt Count (150-400) K/uL Neut % (Auto) (36-66) % Lymph % (Auto) (24-44) % [place] % (Auto) (2-6) % Eos % (Auto) (2-4) % Baso % (Auto) (0-1) % Add Manual Diff Neutrophils % (Manual) (36-66) % Band Neutrophils % (5-11) % Lymphocytes % (Manual) (24-44) % Monocytes % (Manual) (2-6) % ESR (0-25) mm/hr Puncture Site Lt radial ABG pH 7.454 H (7.350-7.450) ABG pCO2 34.0 L (35.0-42.0) mmHg ABG pO2 54.6 L (75.0-100.0) mmHg ABG HCO3 23.5 (22.0-26.0) mmol/L ABG Total CO2 21.1 (21.0-25.0) mmol/L ABG O2 Saturation 88.7 L (95.0-98.0) % ABG O2 Content 14.7 L (15.0-23.0) %vol ABG Base Excess 0.5 mm/L ABG Hemoglobin 12.0 (12.0-16.0) g/dL ABG Oxyhemoglobin 87.3 % ABG Carboxyhemoglobin 1.2 (0.0-1.6) % ABG Methemoglobin 0.4 % Nick Test Passed O2 Delivery Device Nasal cannula Sodium 131 L (140-148) mmol/L Potassium 4.1 (3.6-5.2) mmol/L Chloride 96 L (100-108) mmol/L Carbon Dioxide 25 (21-32) mmol/L Anion Gap 14.1 H (5.0-14.0) mmol/L BUN 18 (7-18) mg/dL Creatinine 1.2 H (0.6-1.0) mg/dL Est Cr Clr Drug Dosing 44.29 mL/min Estimated GFR (MDRD) 44 L (>60) Glucose 132 H (74-106) mg/dL Lactic Acid 1.9 (0.4-2.0) mmol/L Calcium 8.9 (8.5-10.1) mg/dL Magnesium (1.8-2.4) mg/dL Total Bilirubin 2.0 H (0.2-1.0) mg/dL Direct Bilirubin (0.0-0.2) mg/dL AST 72 H (15-37) U/L ALT 67 (12-78) U/L Alkaline Phosphatase 263 H (46-116) U/L Troponin I (0.000-0.056) ng/mL C-Reactive Protein (0.0-0.3) mg/dL Total Protein 6.8 (6.4-8.2) g/dL Albumin 2.7 L (3.4-5.0) g/dL Globulin 4.1 H (2.3-3.5) g/dL Albumin/Globulin Ratio 0.7 L (1.2-2.2) Lipase (73-393) U/L TSH, Ultra Sensitive (0.358-3.740) uIU/mL Urine Color Urine Appearance Urine pH (4.5-8.0) Ur Specific Elmer (1.008-1.030) Urine Protein (NEGATIVE) mg/dL Urine Glucose (UA) (NEGATIVE) mg/dL Urine Ketones (NEGATIVE) mg/dL Urine Occult Blood (NEGATIVE) Urine Nitrite (NEGATIVE) Urine Bilirubin (NEGATIVE) Urine Urobilinogen (NORMAL) mg/dL Ur Leukocyte Esterase (NEGATIVE) Urine RBC (0-5) Urine WBC (0-5) Ur Epithelial Cells Amorphous Sediment Urine Bacteria Urine Mucus 05/15/18 05/15/18 05/15/18 Range/Units 16:22 17:16 18:19 WBC (4.5-11.0) K/uL RBC (3.30-5.50) M/uL Hgb (12.0-15.0) g/dL Hct (36.0-48.0) % MCV (80-98) fL MCH (27-31) pg MCHC (32-36) % Plt Count (150-400) K/uL Neut % (Auto) (36-66) % Lymph % (Auto) (24-44) % [place] % (Auto) (2-6) % Eos % (Auto) (2-4) % Baso % (Auto) (0-1) % Add Manual Diff Neutrophils % (Manual) (36-66) % Band Neutrophils % (5-11) % Lymphocytes % (Manual) (24-44) % Monocytes % (Manual) (2-6) % ESR (0-25) mm/hr Puncture Site ABG pH (7.350-7.450) ABG pCO2 (35.0-42.0) mmHg ABG pO2 (75.0-100.0) mmHg ABG HCO3 (22.0-26.0) mmol/L ABG Total CO2 (21.0-25.0) mmol/L ABG O2 Saturation (95.0-98.0) % ABG O2 Content (15.0-23.0) %vol ABG Base Excess mm/L ABG Hemoglobin (12.0-16.0) g/dL ABG Oxyhemoglobin % ABG Carboxyhemoglobin (0.0-1.6) % ABG Methemoglobin % Nick Test O2 Delivery Device Sodium (140-148) mmol/L Potassium (3.6-5.2) mmol/L Chloride (100-108) mmol/L Carbon Dioxide (21-32) mmol/L Anion Gap (5.0-14.0) mmol/L BUN (7-18) mg/dL Creatinine (0.6-1.0) mg/dL Est Cr Clr Drug Dosing mL/min Estimated GFR (MDRD) (>60) Glucose (74-106) mg/dL Lactic Acid (0.4-2.0) mmol/L Calcium (8.5-10.1) mg/dL Magnesium (1.8-2.4) mg/dL Total Bilirubin (0.2-1.0) mg/dL Direct Bilirubin (0.0-0.2) mg/dL AST (15-37) U/L ALT (12-78) U/L Alkaline Phosphatase (46-116) U/L Troponin I 0.058 H* (0.000-0.056) ng/mL C-Reactive Protein (0.0-0.3) mg/dL Total Protein (6.4-8.2) g/dL Albumin (3.4-5.0) g/dL Globulin (2.3-3.5) g/dL Albumin/Globulin Ratio (1.2-2.2) Lipase 124 (73-393) U/L TSH, Ultra Sensitive 0.730 (0.358-3.740) uIU/mL Urine Color Urine Appearance Urine pH (4.5-8.0) Ur Specific [place]mer (1.008-1.030) Urine Protein (NEGATIVE) mg/dL Urine Glucose (UA) (NEGATIVE) mg/dL Urine Ketones (NEGATIVE) mg/dL Urine Occult Blood (NEGATIVE) Urine Nitrite (NEGATIVE) Urine Bilirubin (NEGATIVE) Urine Urobilinogen (NORMAL) mg/dL Ur Leukocyte Esterase (NEGATIVE) Urine RBC (0-5) Urine WBC (0-5) Ur Epithelial Cells Amorphous Sediment Urine Bacteria Urine Mucus 05/15/18 05/15/18 05/16/18 Range/Units 21:04 23:10 06:00 WBC 8.3 (4.5-11.0) K/uL RBC 3.86 (3.30-5.50) M/uL Hgb 12.1 (12.0-15.0) g/dL Hct 35.7 L (36.0-48.0) % MCV 93 (80-98) fL MCH 31 (27-31) pg MCHC 34 (32-36) % Plt Count 141 L (150-400) K/uL Neut % (Auto) 81 H (36-66) % Lymph % (Auto) 12 L (24-44) % [place] % (Auto) 6 (2-6) % Eos % (Auto) 0 L (2-4) % Baso % (Auto) 0 (0-1) % Add Manual Diff Neutrophils % (Manual) (36-66) % Band Neutrophils % (5-11) % Lymphocytes % (Manual) (24-44) % Monocytes % (Manual) (2-6) % ESR 78 H (0-25) mm/hr Puncture Site ABG pH (7.350-7.450) ABG pCO2 (35.0-42.0) mmHg ABG pO2 (75.0-100.0) mmHg ABG HCO3 (22.0-26.0) mmol/L ABG Total CO2 (21.0-25.0) mmol/L ABG O2 Saturation (95.0-98.0) % ABG O2 Content (15.0-23.0) %vol ABG Base Excess mm/L ABG Hemoglobin (12.0-16.0) g/dL ABG Oxyhemoglobin % ABG Carboxyhemoglobin (0.0-1.6) % ABG Methemoglobin % Nick Test O2 Delivery Device Sodium (140-148) mmol/L Potassium (3.6-5.2) mmol/L Chloride (100-108) mmol/L Carbon Dioxide (21-32) mmol/L Anion Gap (5.0-14.0) mmol/L BUN (7-18) mg/dL Creatinine (0.6-1.0) mg/dL Est Cr Clr Drug Dosing mL/min Estimated GFR (MDRD) (>60) Glucose (74-106) mg/dL Lactic Acid (0.4-2.0) mmol/L Calcium (8.5-10.1) mg/dL Magnesium (1.8-2.4) mg/dL Total Bilirubin (0.2-1.0) mg/dL Direct Bilirubin (0.0-0.2) mg/dL AST (15-37) U/L ALT (12-78) U/L Alkaline Phosphatase (46-116) U/L Troponin I 0.056 (0.000-0.056) ng/mL C-Reactive Protein (0.0-0.3) mg/dL Total Protein (6.4-8.2) g/dL Albumin (3.4-5.0) g/dL Globulin (2.3-3.5) g/dL Albumin/Globulin Ratio (1.2-2.2) Lipase (73-393) U/L TSH, Ultra Sensitive (0.358-3.740) uIU/mL Urine Color Urine Appearance Urine pH (4.5-8.0) Ur Specific [place]mer (1.008-1.030) Urine Protein (NEGATIVE) mg/dL Urine Glucose (UA) (NEGATIVE) mg/dL Urine Ketones (NEGATIVE) mg/dL Urine Occult Blood (NEGATIVE) Urine Nitrite (NEGATIVE) Urine Bilirubin (NEGATIVE) Urine Urobilinogen (NORMAL) mg/dL Ur Leukocyte Esterase (NEGATIVE) Urine RBC (0-5) Urine WBC (0-5) Ur Epithelial Cells Amorphous Sediment Urine Bacteria Urine Mucus 05/16/18 05/16/18 Range/Units 06:00 06:00 WBC (4.5-11.0) K/uL RBC (3.30-5.50) M/uL Hgb (12.0-15.0) g/dL Hct (36.0-48.0) % MCV (80-98) fL MCH (27-31) pg MCHC (32-36) % Plt Count (150-400) K/uL Neut % (Auto) (36-66) % Lymph % (Auto) (24-44) % [place] % (Auto) (2-6) % Eos % (Auto) (2-4) % Baso % (Auto) (0-1) % Add Manual Diff Neutrophils % (Manual) (36-66) % Band Neutrophils % (5-11) % Lymphocytes % (Manual) (24-44) % Monocytes % (Manual) (2-6) % ESR (0-25) mm/hr Puncture Site ABG pH (7.350-7.450) ABG pCO2 (35.0-42.0) mmHg ABG pO2 (75.0-100.0) mmHg ABG HCO3 (22.0-26.0) mmol/L ABG Total CO2 (21.0-25.0) mmol/L ABG O2 Saturation (95.0-98.0) % ABG O2 Content (15.0-23.0) %vol ABG Base Excess mm/L ABG Hemoglobin (12.0-16.0) g/dL ABG Oxyhemoglobin % ABG Carboxyhemoglobin (0.0-1.6) % ABG Methemoglobin % Nick Test O2 Delivery Device Sodium 135 L (140-148) mmol/L Potassium 4.3 (3.6-5.2) mmol/L Chloride 102 (100-108) mmol/L Carbon Dioxide 25 (21-32) mmol/L Anion Gap 12.3 (5.0-14.0) mmol/L BUN 20 H (7-18) mg/dL Creatinine 1.2 H (0.6-1.0) mg/dL Est Cr Clr Drug Dosing 42.75 mL/min Estimated GFR (MDRD) 44 L (>60) Glucose 158 H (74-106) mg/dL Lactic Acid (0.4-2.0) mmol/L Calcium 8.3 L (8.5-10.1) mg/dL Magnesium 2.2 (1.8-2.4) mg/dL Total Bilirubin 1.2 H (0.2-1.0) mg/dL Direct Bilirubin 0.68 H (0.0-0.2) mg/dL AST 67 H (15-37) U/L ALT 61 (12-78) U/L Alkaline Phosphatase 275 H (46-116) U/L Troponin I 0.028 (0.000-0.056) ng/mL C-Reactive Protein (0.0-0.3) mg/dL Total Protein 5.6 L (6.4-8.2) g/dL Albumin 2.1 L (3.4-5.0) g/dL Globulin 3.5 (2.3-3.5) g/dL Albumin/Globulin Ratio 0.6 L (1.2-2.2) Lipase (73-393) U/L TSH, Ultra Sensitive (0.358-3.740) uIU/mL Urine Color Urine Appearance Urine pH (4.5-8.0) Ur Specific [place]mer (1.008-1.030) Urine Protein (NEGATIVE) mg/dL Urine Glucose (UA) (NEGATIVE) mg/dL Urine Ketones (NEGATIVE) mg/dL Urine Occult Blood (NEGATIVE) Urine Nitrite (NEGATIVE) Urine Bilirubin (NEGATIVE) Urine Urobilinogen (NORMAL) mg/dL Ur Leukocyte Esterase (NEGATIVE) Urine RBC (0-5) Urine WBC (0-5) Ur Epithelial Cells Amorphous Sediment Urine Bacteria Urine Mucus Med Orders - Current: Current Medications Acetaminophen (Tylenol) 650 mg PO Q4H PRN PRN Reason: Pain (Mild 1-3)/fever Last Admin: 05/15/18 21:48 Dose: 650 mg Atorvastatin Calcium (Lipitor) 40 mg PO DAILY [facility] Hydrocortisone Sodium Succinate (Solu-Cortef) 100 mg IVPUSH Q12H [facility] Hydromorphone HCl (Dilaudid) 0.25 mg IVPUSH Q2H PRN PRN Reason: Pain Last Admin: 05/16/18 00:35 Dose: 0.25 mg Ampicillin Sodium/Sulbactam (Sodium 1.5 gm/ Sodium Chloride) 50 mls @ 100 mls/ hr IV Q6HR [facility] Last Admin: 05/16/18 03:55 Dose: 100 mls/hr Lactated Ringer's (Ringers, Lactated) 1,000 mls @ 125 mls/hr IV ASDIRECTED [facility] Last Admin: 05/16/18 05:41 Dose: 125 mls/hr Levofloxacin/Dextrose 750 mg/ (Premix) 150 mls @ 100 mls/hr IV Q48H [facility] Last Admin: 05/15/18 19:49 Dose: 100 mls/hr Magnesium Hydroxide (Milk Of Magnesia) 30 ml PO Q12H PRN PRN Reason: Constipation Ondansetron HCl (Zofran) 4 mg IV Q4H PRN PRN Reason: Nausea/Vomiting Oxycodone HCl (Oxycodone) 5 mg PO Q4H PRN PRN Reason: Pain (moderate 4-6) Polyethylene Glycol (Miralax) 17 gm PO DAILY PRN PRN Reason: Constipation Last Admin: 05/15/18 21:49 Dose: 17 gm Senna/Docusate Sodium (Senna Plus) 1 tab PO BID PRN PRN Reason: Constipation Sodium Chloride (Saline Flush) 10 ml FLUSH ASDIRECTED PRN PRN Reason: Keep Vein Open Discontinued Medications Al Hydroxide/Mg Hydroxide 15 (ml/ Lidocaine HCl 15 ml) 0 ml PO ONETIME ONE Stop: 05/15/18 12:51 Last Admin: 05/15/18 13:05 Dose: 30 ml Hydrocortisone Sodium Succinate (Solu-Cortef) 100 mg IVPUSH Q6H [facility] Last Admin: 05/16/18 03:55 Dose: 100 mg Hydrocortisone Sodium Succinate (Solu-Cortef) 100 mg IVPUSH Q6H [facility] Sodium Chloride (Normal Saline) 1,000 mls @ 999 mls/hr IV ASDIRECTED [facility] Last Admin: 05/15/18 13:05 Dose: 999 mls/hr Sodium Chloride (Normal Saline) 100 mls @ 3 mls/sec IV ASDIRECTED [facility] Last Admin: 05/15/18 16:54 Dose: 3 mls/sec Lactated Ringer's (Ringers, Lactated) 1,000 mls @ 250 mls/hr IV ASDIRECTED [facility] Stop: 05/15/18 21:17 Last Admin: 05/15/18 17:59 Dose: 250 mls/hr Iopamidol (Isovue-370 (76%)) 100 ml IV . DIRECTED [facility] Last Admin: 05/15/18 16:54 Dose: 80 ml Ketorolac Tromethamine (Toradol) 30 mg IVPUSH ONETIME ONE Stop: 05/15/18 14:41 Last Admin: 05/15/18 15:00 Dose: 30 mg Ondansetron HCl (Zofran) 4 mg IVPUSH ONETIME ONE Stop: 05/15/18 12:52 Last Admin: 05/15/18 13:05 Dose: 4 mg - Exam Quality Assessment: Supplemental Oxygen General: Alert, Oriented, Cooperative, No Acute Distress Neck: Supple Lungs: Normal Respiratory Effort, Crackles (both bases). No: Wheezing Cardiovascular: Regular Rate, Regular Rhythm, No Murmurs GI/Abdominal Exam: Normal Bowel Sounds, Soft, Non-Tender, No Distention Extremities: No Pedal Edema. No: Increased Warmth Skin: Warm, Dry Psy/Mental Status: Alert, Normal Affect - Problem List Review Problem List Initiated/Reviewed/Updated: Yes - My Orders Last 24 Hours: My Active Orders 05/16/18 10:00 Hydrocortisone Sod Succinate [Solu-CORTEF] 100 mg IVPUSH Q12H 05/17/18 05:00 CBC W/O DIFF,HEMOGRAM [HEME] Timed (1) COMPREHENSIVE METABOLIC PN,CMP [CHEM] Timed - Plan Plan:: ASSESSMENT AND PLAN BILATERAL INTERSTITIAL INFILTRATES WITH HYPOXIA - CT scan of the chest shows no evidence of pulmonary emboli but does document bilateral infiltrates, infectious versus inflammatory. Left ventricular function normal on echocardiogram. Suspect bilateral pneumonia with inflammatory/vasculitis less likely. -Blood cultures pending -Empiric IV antibiotic therapy with Unasyn and levofloxacin -Supplemental oxygen as needed -Continue steroids for tonight -May require further evaluation including bronchoscopy -Autoimmune workup to be sent out in the morning -Consider trial of low-dose diuresis tomorrow NAUSEA AND VOMITING ASSOCIATED WITH ELEVATED BILIRUBIN - CT scan obtained 3 days ago showed no obvious abnormalities other than mesenteric lymphadenopathy. Abdominal pain and nausea have resolved. HIDA scan did show a decreased gallbladder ejection fraction consistent with biliary dyskinesia. No indication for urgent surgical intervention -Continue antibiotics as above -Consider outpatient cholecystectomy after pneumonia has resolved SLIGHT ELEVATION IN TROPONIN - likely secondary to demand ischemia in the setting of hypoxia, level normalized quickly with management as above -Continue cardiac monitoring CHRONIC KIDNEY DISEASE STAGE III - renal function slightly decreased from baseline but stable. -Monitor urine output and renal function MAINTENANCE ISSUES -DVT prophylaxis; SCUDs -GI prophylaxis; not indicated -Parmar catheter; not indicated -Nutrition; regular diet DISPOSITION - anticipate discharge to home after the hospital stay. Ellis Adams M.D.
[2018-05-16] MEDS ORDERED: Hydrocortisone Sodium Succinate 100 MG/2 ML SDV IVPUSH SCH (10:00)
[2018-05-16] MEDS: atorvaSTATin 20 MG Tab PO SCH (11:01)
[2018-05-16] MEDS: Acetaminophen 325 MG Tab PO PRN ×2 (11:14→22:32)
--- NOTE | 2018-05-16 11:41 | MR ---
Cholangiopancreatography CLINICAL HISTORY: Abdominal pain COMPARISON: Current HIDA study TECHNIQUE: Multiple images of the biliary system were obtained. All images were obtained on a 1.5 Krystin la Siemens unit. FINDINGS: There is no intrahepatic biliary dilatation. No mass identified within the liver. Gallbladd er is mildly elongated is anatomic variation. There is a fold in the occipital gallbladder. No fillin g defects identified. The common bile duct has a normal course and contour. The pancreatic duct is no ndilated. There are small bilateral pleural effusions. IMPRESSION: No mass or biliary dilatation Small bilateral pleural effusions
--- NOTE | 2018-05-16 11:45 | NM ---
HEPATOBILIARY SCAN WITH EJECTION FRACTION: Clinical History: Abdominal pain Multiple images of the hepatobiliary system were obtained following the IV injection of 5.21 mCi of t echnetium 99m Choletec. 60 minutes into the study the patient was given 1.9 mcg of Kinevac IV. Patien t experienced abdominal pain following Kinevac injection Quantitative analysis of the gallbladder was performed. Findings: There is a normal pattern of hepatic uptake. Biliary activity is seen at 20minutes. Gallbla dder activity is seen at 30minutes. Intestinal activity is seen at 50minutes.Following the Kinevac in fusion the gallbladder ejection fraction was calculated at 20%. Impression:Normal visualization of the biliary tree The gallbladder ejection fraction was abnormaly low at 20%
[2018-05-16] MEDS ORDERED: Lactated Ringers 1,000 ML IV SCH (14:00)
[2018-05-16] MEDS: Polyethylene Glycol 3350 Powder 17 GM Packet PO PRN (18:19)
[2018-05-17] MEDS: Ampicillin/Sulbactam Na 1.5 GM in Sodium Chloride 0.9% 50 ML IV SCH ×4 (04:42→21:45)
[2018-05-17] MEDS: atorvaSTATin 20 MG Tab PO SCH (08:15)
--- NOTE | 2018-05-17 09:02 | PCM.PN ---
- General Info Date of Service: 05/17/18 Functional Status: Reports: Pain Controlled, Tolerating Diet - Review of Systems General: Denies: Fever Pulmonary: Reports: Shortness of Breath, Cough Gastrointestinal: Denies: Abdominal Pain, Nausea Systems Review Comment:: There were no acute events overnight. She has not experienced any abdominal pain or nausea. She has not had any fevers. Supplemental oxygen has been weaned down to 2 L as of this morning. She is feeling better overall. Kidney function slightly better today. White count remains normal. - Patient Data Vitals - Most Recent: Last Vital Signs Temp 35.7 C 05/17/18 04:49 Pulse 87 05/16/18 18:00 Resp 19 05/17/18 04:49 BP 140/68 05/17/18 04:49 Pulse Ox 94 L 05/17/18 05:00 Weight - Most Recent: 94.801 kg I&O - Last 24 Hours: Intake & Output 05/16/18 05/17/18 05/17/18 22:59 06:59 14:59 Intake Total 1644 Output Total 400 600 Balance 1244 -600 Lab Results Last 24 Hours: Laboratory Results - last 24 hr 05/17/18 05/17/18 Range/Units 04:40 05:00 WBC 8.6 (4.5-11.0) K/uL RBC 3.90 (3.30-5.50) M/uL Hgb 11.8 L (12.0-15.0) g/dL Hct 35.9 L (36.0-48.0) % MCV 92 (80-98) fL MCH 30 (27-31) pg MCHC 33 (32-36) % Plt Count 183 (150-400) K/uL Sodium 139 L (140-148) mmol/L Potassium 4.2 (3.6-5.2) mmol/L Chloride 106 (100-108) mmol/L Carbon Dioxide 28 (21-32) mmol/L Anion Gap 9.2 (5.0-14.0) mmol/L BUN 23 H (7-18) mg/dL Creatinine 1.0 (0.6-1.0) mg/dL Est Cr Clr Drug Dosing 51.50 mL/min Estimated GFR (MDRD) 55 L (>60) Glucose 164 H (74-106) mg/dL Calcium 8.4 L (8.5-10.1) mg/dL Total Bilirubin 0.8 (0.2-1.0) mg/dL AST 60 H (15-37) U/L ALT 49 (12-78) U/L Alkaline Phosphatase 246 H (46-116) U/L Total Protein 5.5 L (6.4-8.2) g/dL Albumin 2.1 L (3.4-5.0) g/dL Globulin 3.4 (2.3-3.5) g/dL Albumin/Globulin Ratio 0.6 L (1.2-2.2) Naveen Results Last 24 Hours: Microbiology 05/15/18 17:30 Aerobic Blood Culture - Preliminary Blood - Arm, Right NO GROWTH AFTER 1 DAY Anaerobic Blood Culture - Preliminary NO GROWTH AFTER 1 DAY 05/15/18 17:20 Aerobic Blood Culture - Preliminary Blood - Arm, Right NO GROWTH AFTER 1 DAY Anaerobic Blood Culture - Preliminary NO GROWTH AFTER 1 DAY Med Orders - Current: Current Medications Acetaminophen (Tylenol) 650 mg PO Q4H PRN PRN Reason: Pain (Mild 1-3)/fever Last Admin: 05/16/18 22:32 Dose: 650 mg Atorvastatin Calcium (Lipitor) 40 mg PO DAILY [facility] Last Admin: 05/16/18 11:01 Dose: 40 mg Ampicillin Sodium/Sulbactam (Sodium 1.5 gm/ Sodium Chloride) 50 mls @ 100 mls/ hr IV Q6HR [facility] Last Admin: 05/17/18 04:42 Dose: 100 mls/hr Magnesium Hydroxide (Milk Of Magnesia) 30 ml PO Q12H PRN PRN Reason: Constipation Ondansetron HCl (Zofran) 4 mg IV Q4H PRN PRN Reason: Nausea/Vomiting Oxycodone HCl (Oxycodone) 5 mg PO Q4H PRN PRN Reason: Pain (moderate 4-6) Polyethylene Glycol (Miralax) 17 gm PO DAILY PRN PRN Reason: Constipation Last Admin: 05/16/18 18:19 Dose: 17 gm Senna/Docusate Sodium (Senna Plus) 1 tab PO BID PRN PRN Reason: Constipation Last Admin: 05/17/18 02:52 Dose: 1 tab Sodium Chloride (Saline Flush) 10 ml FLUSH ASDIRECTED PRN PRN Reason: Keep Vein Open Discontinued Medications Al Hydroxide/Mg Hydroxide 15 (ml/ Lidocaine HCl 15 ml) 0 ml PO ONETIME ONE Stop: 05/15/18 12:51 Last Admin: 05/15/18 13:05 Dose: 30 ml Hydrocortisone Sodium Succinate (Solu-Cortef) 100 mg IVPUSH Q6H [facility] Last Admin: 05/16/18 03:55 Dose: 100 mg Hydrocortisone Sodium Succinate (Solu-Cortef) 100 mg IVPUSH Q12H [facility] Last Admin: 05/16/18 21:18 Dose: 100 mg Hydromorphone HCl (Dilaudid) 0.25 mg IVPUSH Q2H PRN PRN Reason: Pain Last Admin: 05/16/18 00:35 Dose: 0.25 mg Sodium Chloride (Normal Saline) 1,000 mls @ 999 mls/hr IV ASDIRECTED [facility] Last Admin: 05/15/18 13:05 Dose: 999 mls/hr Sodium Chloride (Normal Saline) 100 mls @ 3 mls/sec IV ASDIRECTED [facility] Last Admin: 05/15/18 16:54 Dose: 3 mls/sec Lactated Ringer's (Ringers, Lactated) 1,000 mls @ 250 mls/hr IV ASDIRECTED [facility] Stop: 05/15/18 21:17 Last Admin: 05/15/18 17:59 Dose: 250 mls/hr Lactated Ringer's (Ringers, Lactated) 1,000 mls @ 25 mls/hr IV ASDIRECTED [facility] Last Admin: 05/16/18 05:41 Dose: 125 mls/hr Levofloxacin/Dextrose 750 mg/ (Premix) 150 mls @ 100 mls/hr IV Q48H [facility] Last Admin: 05/15/18 19:49 Dose: 100 mls/hr Lactated Ringer's (Ringers, Lactated) 1,000 mls @ 25 mls/hr IV ASDIRECTED [facility] Levofloxacin/Dextrose 750 mg/ (Premix) 150 mls @ 100 mls/hr IV Q24H [facility] Last Admin: 05/17/18 08:36 Dose: 100 mls/hr Iopamidol (Isovue-370 (76%)) 100 ml IV . DIRECTED [facility] Last Admin: 05/15/18 16:54 Dose: 80 ml Ketorolac Tromethamine (Toradol) 30 mg IVPUSH ONETIME ONE Stop: 05/15/18 14:41 Last Admin: 05/15/18 15:00 Dose: 30 mg Ondansetron HCl (Zofran) 4 mg IVPUSH ONETIME ONE Stop: 05/15/18 12:52 Last Admin: 05/15/18 13:05 Dose: 4 mg - Exam Quality Assessment: Supplemental Oxygen General: Alert, Oriented, Cooperative, No Acute Distress Neck: Supple, No JVD Lungs: Normal Respiratory Effort, Crackles (rare both bases, L>R). No: Wheezing Cardiovascular: Regular Rate, Regular Rhythm GI/Abdominal Exam: Soft, No Distention Extremities: No Pedal Edema. No: Increased Warmth Skin: Warm, Dry Psy/Mental Status: Alert, Normal Affect - Problem List Review Problem List Initiated/Reviewed/Updated: Yes - My Orders Last 24 Hours: My Active Orders 05/16/18 10:00 Hydrocortisone Sod Succinate [Solu-CORTEF] 100 mg IVPUSH Q12H 05/16/18 14:00 Lactated Ringers [Ringers, Lactated] 1,000 ml IV ASDIRECTED 05/16/18 Lunch Regular Diet [DIET] 05/17/18 04:40 EVIE W/REFLEX Routine ANCA PANEL Routine C4+C3 Routine HEMATOPATH CONSULTATION, SMEAR Routine 05/17/18 08:58 Discontinue Telemetry Monitoring [Cardiac Monitoring Discontinue] [RC] Click to Edit 05/17/18 09:00 Transfer Patient (Change bed) [ADT] Routine 05/18/18 05:00 BASIC METABOLIC PANEL,BMP [CHEM] Timed CBC W/O DIFF,HEMOGRAM [HEME] Timed (1) 05/18/18 09:00 Levofloxacin [Levaquin] 250 mg PO Q24H Levofloxacin [Levaquin] 500 mg PO Q24H - Plan Plan:: ASSESSMENT AND PLAN BILATERAL INTERSTITIAL INFILTRATES WITH HYPOXIA - CT scan of the chest shows no evidence of pulmonary emboli but does document bilateral infiltrates, infectious versus inflammatory. Left ventricular function normal on echocardiogram. Suspect bilateral pneumonia with inflammatory/vasculitis less likely. Volume status appropriate based on examination today. -Blood cultures pending -Empiric IV antibiotic therapy with Unasyn and levofloxacin -Supplemental oxygen as needed -Discontinue steroids -Autoimmune workup pending NAUSEA AND VOMITING ASSOCIATED WITH ELEVATED BILIRUBIN - recent CT scan showed no obvious abnormalities other than mesenteric lymphadenopathy. Abdominal pain and nausea have not returned. HIDA scan did show a decreased gallbladder ejection fraction consistent with biliary dyskinesia. No indication for urgent surgical intervention -Continue antibiotics as above -Consider outpatient cholecystectomy after pneumonia has resolved SLIGHT ELEVATION IN TROPONIN - likely secondary to demand ischemia in the setting of hypoxia, level normalized quickly with management as above -Continue cardiac monitoring CHRONIC KIDNEY DISEASE STAGE III - renal function now back to baseline. -Monitor urine output and renal function MAINTENANCE ISSUES -DVT prophylaxis; SCUDs -GI prophylaxis; not indicated -Parmar catheter; not indicated -Nutrition; regular diet DISPOSITION - anticipate discharge to home after the hospital stay. She will be transferred out of the intensive care unit today and I would anticipate discharged home tomorrow if she can be weaned off her oxygen overnight. Ellis Adams M.D.
[2018-05-17] MEDS ORDERED: Levofloxacin/Dextrose 5%-Water 750 MG in Premix Bag 1 BAG IV SCH (09:30)
[2018-05-17] MEDS: Acetaminophen 325 MG Tab PO PRN ×3 (11:19→22:44)
[2018-05-17] MEDS ORDERED: Gabapentin 300 MG Cap PO ONE (21:27)
[2018-05-17] MEDS: HYDROmorphone 0.5 MG/0.5 ML Syringe IVPUSH PRN ×2 (21:45→22:37)
[2018-05-18] MEDS: Ampicillin/Sulbactam Na 1.5 GM in Sodium Chloride 0.9% 50 ML IV SCH ×4 (04:05→21:04)
[2018-05-18] MEDS: Acetaminophen 325 MG Tab PO PRN ×3 (08:29→19:07)
[2018-05-18] MEDS ORDERED: Albuterol 0.083% 2.5 MG/3 ML Neb Soln NEB PRN (08:45)
--- NOTE | 2018-05-18 08:47 | PCM.PN ---
- General Info Date of Service: 05/18/18 Functional Status: Reports: Pain Controlled, Tolerating Diet - Review of Systems General: Reports: Fever Pulmonary: Reports: Shortness of Breath Gastrointestinal: Denies: Abdominal Pain Musculoskeletal: Reports: Joint Pain (both knees) Systems Review Comment:: there were no acute events overnight but this morning the patient has a fever of nearly 102. She felt more short of breath about the time the fever started. she has an intermittent loose cough but no sputum production. No chest pain. No abdominal pain or nausea. She was off supplemental oxygen a good chunk of the day yesterday but is now back on as of yesterday evening. - Patient Data Vitals - Most Recent: Last Vital Signs Temp 38.8 C H 05/18/18 08:29 Pulse 101 H 05/18/18 08:20 Resp 20 05/18/18 08:20 BP 132/87 05/18/18 08:20 Pulse Ox 95 05/18/18 08:20 Weight - Most Recent: 94.801 kg I&O - Last 24 Hours: Intake & Output 05/17/18 05/18/18 05/18/18 22:59 06:59 14:59 Intake Total 105 955 Output Total 1125 1100 850 Balance -1775 -551 -360 Lab Results Last 24 Hours: Laboratory Results - last 24 hr 05/18/18 05/18/18 Range/Units 05:50 05:50 WBC 9.4 (4.5-11.0) K/uL RBC 4.42 (3.30-5.50) M/uL Hgb 13.5 (12.0-15.0) g/dL Hct 40.7 (36.0-48.0) % MCV 92 (80-98) fL MCH 31 (27-31) pg MCHC 33 (32-36) % Plt Count 253 (150-400) K/uL Sodium 140 (140-148) mmol/L Potassium 3.8 (3.6-5.2) mmol/L Chloride 102 (100-108) mmol/L Carbon Dioxide 28 (21-32) mmol/L Anion Gap 10.3 (5.0-14.0) mmol/L BUN 18 (7-18) mg/dL Creatinine 1.2 H (0.6-1.0) mg/dL Est Cr Clr Drug Dosing 42.92 mL/min Estimated GFR (MDRD) 44 L (>60) Glucose 109 H (74-106) mg/dL Calcium 8.5 (8.5-10.1) mg/dL Naveen Results Last 24 Hours: Microbiology 05/15/18 17:30 Aerobic Blood Culture - Preliminary Blood - Arm, Right NO GROWTH AFTER 2 DAYS Anaerobic Blood Culture - Preliminary NO GROWTH AFTER 2 DAYS 05/15/18 17:20 Aerobic Blood Culture - Preliminary Blood - Arm, Right NO GROWTH AFTER 2 DAYS Anaerobic Blood Culture - Preliminary NO GROWTH AFTER 2 DAYS Med Orders - Current: Current Medications Acetaminophen (Tylenol) 650 mg PO Q4H PRN PRN Reason: Pain (Mild 1-3)/fever Last Admin: 05/18/18 08:29 Dose: 650 mg Atorvastatin Calcium (Lipitor) 40 mg PO BEDTIME [facility] Hydromorphone HCl (Dilaudid) 0.5 mg IVPUSH Q2H PRN PRN Reason: Pain (severe 7-10) Last Admin: 05/17/18 22:37 Dose: 0.25 mg Ampicillin Sodium/Sulbactam (Sodium 1.5 gm/ Sodium Chloride) 50 mls @ 100 mls/ hr IV Q6HR [facility] Last Admin: 05/18/18 04:05 Dose: 100 mls/hr Levofloxacin 250 mg/ (Levofloxacin 500 mg) 750 mg PO ACBREAKFAST [facility] Last Admin: 05/18/18 08:31 Dose: 750 mg Magnesium Hydroxide (Milk Of Magnesia) 30 ml PO Q12H PRN PRN Reason: Constipation Ondansetron HCl (Zofran) 4 mg IV Q4H PRN PRN Reason: Nausea/Vomiting Oxycodone HCl (Oxycodone) 5 mg PO Q4H PRN PRN Reason: Pain (moderate 4-6) Last Admin: 05/17/18 18:01 Dose: 5 mg Polyethylene Glycol (Miralax) 17 gm PO DAILY PRN PRN Reason: Constipation Last Admin: 05/16/18 18:19 Dose: 17 gm Senna/Docusate Sodium (Senna Plus) 1 tab PO BID PRN PRN Reason: Constipation Last Admin: 05/17/18 02:52 Dose: 1 tab Sodium Chloride (Saline Flush) 10 ml FLUSH ASDIRECTED PRN PRN Reason: Keep Vein Open Discontinued Medications Atorvastatin Calcium (Lipitor) 40 mg PO DAILY [facility] Last Admin: 05/17/18 08:15 Dose: 40 mg Al Hydroxide/Mg Hydroxide 15 (ml/ Lidocaine HCl 15 ml) 0 ml PO ONETIME ONE Stop: 05/15/18 12:51 Last Admin: 05/15/18 13:05 Dose: 30 ml Gabapentin (Neurontin) 300 mg PO ONETIME ONE Stop: 05/17/18 21:28 Last Admin: 05/17/18 21:45 Dose: 300 mg Hydrocortisone Sodium Succinate (Solu-Cortef) 100 mg IVPUSH Q6H [facility] Last Admin: 05/16/18 03:55 Dose: 100 mg Hydrocortisone Sodium Succinate (Solu-Cortef) 100 mg IVPUSH Q12H [facility] Last Admin: 05/16/18 21:18 Dose: 100 mg Hydromorphone HCl (Dilaudid) 0.25 mg IVPUSH Q2H PRN PRN Reason: Pain Last Admin: 05/16/18 00:35 Dose: 0.25 mg Sodium Chloride (Normal Saline) 1,000 mls @ 999 mls/hr IV ASDIRECTED [facility] Last Admin: 05/15/18 13:05 Dose: 999 mls/hr Sodium Chloride (Normal Saline) 100 mls @ 3 mls/sec IV ASDIRECTED [facility] Last Admin: 05/15/18 16:54 Dose: 3 mls/sec Lactated Ringer's (Ringers, Lactated) 1,000 mls @ 250 mls/hr IV ASDIRECTED [facility] Stop: 05/15/18 21:17 Last Admin: 05/15/18 17:59 Dose: 250 mls/hr Lactated Ringer's (Ringers, Lactated) 1,000 mls @ 25 mls/hr IV ASDIRECTED [facility] Last Admin: 05/16/18 05:41 Dose: 125 mls/hr Levofloxacin/Dextrose 750 mg/ (Premix) 150 mls @ 100 mls/hr IV Q48H [facility] Last Admin: 05/15/18 19:49 Dose: 100 mls/hr Lactated Ringer's (Ringers, Lactated) 1,000 mls @ 25 mls/hr IV ASDIRECTED [facility] Levofloxacin/Dextrose 750 mg/ (Premix) 150 mls @ 100 mls/hr IV Q24H [facility] Last Admin: 05/17/18 08:36 Dose: 100 mls/hr Iopamidol (Isovue-370 (76%)) 100 ml IV . DIRECTED [facility] Last Admin: 05/15/18 16:54 Dose: 80 ml Ketorolac Tromethamine (Toradol) 30 mg IVPUSH ONETIME ONE Stop: 05/15/18 14:41 Last Admin: 05/15/18 15:00 Dose: 30 mg Ondansetron HCl (Zofran) 4 mg IVPUSH ONETIME ONE Stop: 05/15/18 12:52 Last Admin: 05/15/18 13:05 Dose: 4 mg - Exam Quality Assessment: Supplemental Oxygen General: Alert, Oriented, Cooperative, No Acute Distress Neck: Supple, JVD (to clavicle sitting nearly straight up ) Lungs: Normal Respiratory Effort, Decreased Breath Sounds (left lung base), Crackles (right lung base). No: Wheezing Cardiovascular: Regular Rate, Regular Rhythm, No Murmurs GI/Abdominal Exam: Soft, No Distention Extremities: Pedal Edema (trace bilateral ankle edema). No: Increased Warmth Skin: Warm, Dry. No: Rash Psy/Mental Status: Alert, Normal Affect - Problem List Review Problem List Initiated/Reviewed/Updated: Yes - My Orders Last 24 Hours: My Active Orders 05/17/18 09:00 Transfer Patient (Change bed) [ADT] Routine 05/17/18 21:25 HYDROmorphone [Dilaudid] 0.5 mg IVPUSH Q2H PRN 05/18/18 07:30 Levofloxacin [Levaquin] 750 mg PO ACBREAKFAST 05/18/18 08:43 CXR [Chest 1V Frontal] [CR] Routine 05/18/18 08:44 Furosemide [Lasix] 20 mg IVPUSH ONETIME ONE 05/18/18 08:45 RT Aerosol Therapy [RC] ASDIRECTED Albuterol [Proventil Neb Soln] 2.5 mg NEB Q4H PRN methylPREDNISolone Sod Succ [Solu-MEDROL] 62.5 mg IVPUSH Q6H 05/18/18 21:00 Gabapentin [Neurontin] 300 mg PO BEDTIME 05/19/18 05:00 CBC W/O DIFF,HEMOGRAM [HEME] Timed (1) COMPREHENSIVE METABOLIC PN,CMP [CHEM] Timed - Plan Plan:: ASSESSMENT AND PLAN BILATERAL INTERSTITIAL INFILTRATES WITH HYPOXIA - CT scan of the chest shows no evidence of pulmonary emboli but did document bilateral infiltrates, infectious versus inflammatory. Left ventricular function normal on echocardiogram. Suspect bilateral pneumonia with inflammatory/vasculitis less likely. Volume status seems mildly hypervolemic this morning. Chest x-ray has improved since admission but she is more hypoxic today than yesterday and did have a recurrent fever. -follow-up cultures -Empiric IV antibiotic therapy with Amp/Sulbactam and levofloxacin -Supplemental oxygen as needed -restart steroids -Autoimmune workup pending NAUSEA AND VOMITING ASSOCIATED WITH ELEVATED BILIRUBIN - recent CT scan showed no obvious abnormalities other than mesenteric lymphadenopathy. HIDA scan did show a decreased gallbladder ejection fraction consistent with biliary dyskinesia. No indication for urgent surgical intervention and no active symptoms. -Continue antibiotics as above -Consider outpatient cholecystectomy after pneumonia has resolved SLIGHT ELEVATION IN TROPONIN - likely secondary to demand ischemia in the setting of hypoxia, level normalized quickly with management as above -Continue cardiac monitoring CHRONIC KIDNEY DISEASE STAGE III - renal function now back to baseline. -Monitor urine output and renal function MAINTENANCE ISSUES -DVT prophylaxis; SCUDs -GI prophylaxis; not indicated -Parmar catheter; not indicated -Nutrition; regular diet DISPOSITION - anticipate discharge to home after the hospital stay. She will be transferred out of the intensive care unit today and I would anticipate discharged home tomorrow if she can be weaned off her oxygen overnight. Ellis Adams M.D.
[2018-05-18] MEDS ORDERED: Levofloxacin 250 MG Tab PO SCH (09:00)
[2018-05-18] MEDS ORDERED: Levofloxacin 500 MG Tab PO SCH (09:00)
[2018-05-18] MEDS ORDERED: Furosemide 20 MG/2 ML VIAL IVPUSH ONE (09:30)
[2018-05-18] MEDS: methylPREDNISolone Sodium Succinate 125 MG/2 ML SDV IVPUSH SCH ×3 (10:44→21:01)
--- NOTE | 2018-05-18 11:34 | CR ---
CHEST: Portable CLINICAL HISTORY:Hypoxia COMPARISON:CT chest 05/15/2018 FINDINGS: There are bilateral lower lobe infiltrates. These have improved since prior study. There i s a small left effusion. There is a possible minimal right effusion.. IMPRESSION: Residual bilateral lower lobe infiltrates with some improvement since prior study Left pleural effusion
[2018-05-18] MEDS: atorvaSTATin 20 MG Tab PO SCH (20:52)
[2018-05-18] MEDS: Gabapentin 300 MG Cap PO SCH (20:52)
[2018-05-18] MEDS ORDERED: Pantoprazole 40 MG Tab.CR PO ONE (21:00)
[2018-05-19] MEDS: Ampicillin/Sulbactam Na 1.5 GM in Sodium Chloride 0.9% 50 ML IV SCH (03:57)
[2018-05-19] MEDS: methylPREDNISolone Sodium Succinate 125 MG/2 ML SDV IVPUSH SCH ×4 (03:58→21:43)
[2018-05-19] MEDS: Pantoprazole 40 MG Tab.CR PO SCH (09:08)
--- NOTE | 2018-05-19 09:45 | PCM.PN ---
- General Info Date of Service: 05/19/18 Functional Status: Reports: Pain Controlled, Tolerating Diet - Review of Systems General: Denies: Fever Pulmonary: Reports: Shortness of Breath, Cough Systems Review Comment:: there were no acute events overnight. She has not had any fevers since yesterday morning. Cough ismore productive today but still relatively mild. She continues to require 1-2 L of supplemental oxygen. No complaints of abdominal pain or nausea. bowels have been moving. - Patient Data Vitals - Most Recent: Last Vital Signs Temp 36.4 C 05/19/18 07:09 Pulse 72 05/19/18 07:09 Resp 18 05/19/18 07:09 BP 132/64 05/19/18 07:09 Pulse Ox 94 L 05/19/18 09:00 Weight - Most Recent: 91.626 kg I&O - Last 24 Hours: Intake & Output 05/18/18 05/19/18 05/19/18 22:59 06:59 14:59 Intake Total 170 480 Output Total 2000 200 700 Balance -1830 -200 -220 Lab Results Last 24 Hours: Laboratory Results - last 24 hr 05/19/18 05/19/18 Range/Units 04:23 04:23 WBC 8.9 (4.5-11.0) K/uL RBC 4.19 (3.30-5.50) M/uL Hgb 12.7 (12.0-15.0) g/dL Hct 38.3 (36.0-48.0) % MCV 91 (80-98) fL MCH 30 (27-31) pg MCHC 33 (32-36) % Plt Count 254 (150-400) K/uL Sodium 140 (140-148) mmol/L Potassium 3.6 (3.6-5.2) mmol/L Chloride 102 (100-108) mmol/L Carbon Dioxide 29 (21-32) mmol/L Anion Gap 8.9 (5.0-14.0) mmol/L BUN 20 H (7-18) mg/dL Creatinine 1.0 (0.6-1.0) mg/dL Est Cr Clr Drug Dosing 51.50 mL/min Estimated GFR (MDRD) 55 L (>60) Glucose 198 H (74-106) mg/dL Calcium 8.2 L (8.5-10.1) mg/dL Total Bilirubin 1.1 H (0.2-1.0) mg/dL AST 66 H (15-37) U/L ALT 72 (12-78) U/L Alkaline Phosphatase 293 H (46-116) U/L Total Protein 6.0 L (6.4-8.2) g/dL Albumin 2.2 L (3.4-5.0) g/dL Globulin 3.8 H (2.3-3.5) g/dL Albumin/Globulin Ratio 0.6 L (1.2-2.2) Naveen Results Last 24 Hours: Microbiology 05/15/18 17:30 Aerobic Blood Culture - Preliminary Blood - Arm, Right NO GROWTH AFTER 3 DAYS Anaerobic Blood Culture - Preliminary NO GROWTH AFTER 3 DAYS 05/15/18 17:20 Aerobic Blood Culture - Preliminary Blood - Arm, Right NO GROWTH AFTER 3 DAYS Anaerobic Blood Culture - Preliminary NO GROWTH AFTER 3 DAYS Med Orders - Current: Current Medications Acetaminophen (Tylenol) 650 mg PO Q4H PRN PRN Reason: Pain (Mild 1-3)/fever Last Admin: 05/18/18 19:07 Dose: 650 mg Albuterol (Proventil Neb Soln) 2.5 mg NEB Q4H PRN PRN Reason: Shortness of Breath Atorvastatin Calcium (Lipitor) 40 mg PO BEDTIME [facility] Last Admin: 05/18/18 20:52 Dose: 40 mg Gabapentin (Neurontin) 300 mg PO BEDTIME [facility] Last Admin: 05/18/18 20:52 Dose: 300 mg Hydromorphone HCl (Dilaudid) 0.5 mg IVPUSH Q2H PRN PRN Reason: Pain (severe 7-10) Last Admin: 05/17/18 22:37 Dose: 0.25 mg Ampicillin Sodium/Sulbactam (Sodium 1.5 gm/ Sodium Chloride) 50 mls @ 100 mls/ hr IV Q6HR [facility] Last Admin: 05/19/18 03:57 Dose: 100 mls/hr Levofloxacin 250 mg/ (Levofloxacin 500 mg) 750 mg PO ACBREAKFAST [facility] Last Admin: 05/19/18 07:31 Dose: 750 mg Magnesium Hydroxide (Milk Of Magnesia) 30 ml PO Q12H PRN PRN Reason: Constipation Methylprednisolone Sodium Succinate (Solu-Medrol) 62.5 mg IVPUSH Q6H [facility] Last Admin: 05/19/18 03:58 Dose: 62.5 mg Ondansetron HCl (Zofran) 4 mg IV Q4H PRN PRN Reason: Nausea/Vomiting Last Admin: 05/18/18 09:10 Dose: 4 mg Oxycodone HCl (Oxycodone) 5 mg PO Q4H PRN PRN Reason: Pain (moderate 4-6) Last Admin: 05/17/18 18:01 Dose: 5 mg Pantoprazole Sodium (Protonix) 40 mg PO ACBREAKFAST [facility] Last Admin: 05/19/18 09:08 Dose: 40 mg Polyethylene Glycol (Miralax) 17 gm PO DAILY PRN PRN Reason: Constipation Last Admin: 05/16/18 18:19 Dose: 17 gm Senna/Docusate Sodium (Senna Plus) 1 tab PO BID PRN PRN Reason: Constipation Last Admin: 05/17/18 02:52 Dose: 1 tab Sodium Chloride (Saline Flush) 10 ml FLUSH ASDIRECTED PRN PRN Reason: Keep Vein Open Discontinued Medications Atorvastatin Calcium (Lipitor) 40 mg PO DAILY [facility] Last Admin: 05/17/18 08:15 Dose: 40 mg Al Hydroxide/Mg Hydroxide 15 (ml/ Lidocaine HCl 15 ml) 0 ml PO ONETIME ONE Stop: 05/15/18 12:51 Last Admin: 05/15/18 13:05 Dose: 30 ml Furosemide (Lasix) 20 mg IVPUSH ONETIME ONE Stop: 05/18/18 09:31 Last Admin: 05/18/18 10:40 Dose: 20 mg Gabapentin (Neurontin) 300 mg PO ONETIME ONE Stop: 05/17/18 21:28 Last Admin: 05/17/18 21:45 Dose: 300 mg Hydrocortisone Sodium Succinate (Solu-Cortef) 100 mg IVPUSH Q6H [facility] Last Admin: 05/16/18 03:55 Dose: 100 mg Hydrocortisone Sodium Succinate (Solu-Cortef) 100 mg IVPUSH Q12H [facility] Last Admin: 05/16/18 21:18 Dose: 100 mg Hydromorphone HCl (Dilaudid) 0.25 mg IVPUSH Q2H PRN PRN Reason: Pain Last Admin: 05/16/18 00:35 Dose: 0.25 mg Sodium Chloride (Normal Saline) 1,000 mls @ 999 mls/hr IV ASDIRECTED [facility] Last Admin: 05/15/18 13:05 Dose: 999 mls/hr Sodium Chloride (Normal Saline) 100 mls @ 3 mls/sec IV ASDIRECTED [facility] Last Admin: 05/15/18 16:54 Dose: 3 mls/sec Lactated Ringer's (Ringers, Lactated) 1,000 mls @ 250 mls/hr IV ASDIRECTED [facility] Stop: 05/15/18 21:17 Last Admin: 05/15/18 17:59 Dose: 250 mls/hr Lactated Ringer's (Ringers, Lactated) 1,000 mls @ 25 mls/hr IV ASDIRECTED [facility] Last Admin: 05/16/18 05:41 Dose: 125 mls/hr Levofloxacin/Dextrose 750 mg/ (Premix) 150 mls @ 100 mls/hr IV Q48H [facility] Last Admin: 05/15/18 19:49 Dose: 100 mls/hr Lactated Ringer's (Ringers, Lactated) 1,000 mls @ 25 mls/hr IV ASDIRECTED [facility] Levofloxacin/Dextrose 750 mg/ (Premix) 150 mls @ 100 mls/hr IV Q24H [facility] Last Admin: 05/17/18 08:36 Dose: 100 mls/hr Iopamidol (Isovue-370 (76%)) 100 ml IV . DIRECTED [facility] Last Admin: 05/15/18 16:54 Dose: 80 ml Ketorolac Tromethamine (Toradol) 30 mg IVPUSH ONETIME ONE Stop: 05/15/18 14:41 Last Admin: 05/15/18 15:00 Dose: 30 mg Ondansetron HCl (Zofran) 4 mg IVPUSH ONETIME ONE Stop: 05/15/18 12:52 Last Admin: 05/15/18 13:05 Dose: 4 mg Pantoprazole Sodium (Protonix) 40 mg PO ONETIME ONE Stop: 05/18/18 21:01 Last Admin: 05/18/18 20:55 Dose: 40 mg - Exam Quality Assessment: Supplemental Oxygen General: Alert, Oriented, Cooperative, No Acute Distress Neck: Supple Lungs: Normal Respiratory Effort, Crackles (few both bases L>R). No: Wheezing Cardiovascular: Regular Rate, Regular Rhythm GI/Abdominal Exam: Normal Bowel Sounds, Soft, Non-Tender, No Distention Skin: Warm, Dry Psy/Mental Status: Alert, Normal Affect - Problem List Review Problem List Initiated/Reviewed/Updated: Yes - My Orders Last 24 Hours: My Active Orders 05/18/18 08:45 RT Aerosol Therapy [RC] ASDIRECTED Albuterol [Proventil Neb Soln] 2.5 mg NEB Q4H PRN 05/18/18 10:00 methylPREDNISolone Sod Succ [Solu-MEDROL] 62.5 mg IVPUSH Q6H 05/18/18 21:00 Gabapentin [Neurontin] 300 mg PO BEDTIME 05/19/18 08:45 Pantoprazole [ProTONIX] 40 mg PO ACBREAKFAST 05/19/18 09:43 Potassium Chloride [Klor-Con M20] 40 meq PO ONETIME ONE 05/19/18 09:45 Amoxicillin/Clavulanate K [Augmentin 875 MG/125 MG] 1 tab PO Q12HR 05/20/18 05:00 BASIC METABOLIC PANEL,BMP [CHEM] Timed CBC W/O DIFF,HEMOGRAM [HEME] Timed (1) - Plan Plan:: ASSESSMENT AND PLAN BILATERAL INTERSTITIAL INFILTRATES WITH HYPOXIA - CT chest with no PE but did document bilateral infiltrates, infectious versus inflammatory. Left ventricular function normal on echocardiogram. Suspect bilateral pneumonia with inflammatory/vasculitis less likely. Volume status appropriate today.Chest x- ray has improved since admission. no fever in the last 24 hours -follow-up cultures -Empiric IV antibiotic therapy with levofloxacin and Amox/Clav -Supplemental oxygen as needed -continue steroids until autoimmune workup returns -Autoimmune workup pending NAUSEA AND VOMITING ASSOCIATED WITH ELEVATED BILIRUBIN - recent CT scan showed no obvious abnormalities other than mesenteric lymphadenopathy. HIDA scan did show a decreased gallbladder ejection fraction consistent with biliary dyskinesia. No indication for urgent surgical intervention and no active symptoms. -Continue antibiotics as above -Consider outpatient cholecystectomy after pneumonia has resolved SLIGHT ELEVATION IN TROPONIN - likely secondary to demand ischemia in the setting of hypoxia, level normalized quickly with management as above -Continue cardiac monitoring CHRONIC KIDNEY DISEASE STAGE III - renal function now back to baseline. -Monitor urine output and renal function MAINTENANCE ISSUES -DVT prophylaxis; SCUDs -GI prophylaxis; not indicated -Parmar catheter; not indicated -Nutrition; regular diet DISPOSITION - anticipate discharge to home after the hospital stay. She continues to require supplemental oxygen, hopefully she will be ready for discharge in one or 2 days Ellis Adams M.D.
[2018-05-19] MEDS ORDERED: Potassium Chloride 20 MEQ Tab.ER PO ONE (10:30)
[2018-05-19] MEDS: Amoxicillin/Clavulanate K 875-125 MG Tab PO SCH ×2 (10:59→17:10)
[2018-05-19 11:18] LABS: COMPLEMENT C3, SERUM 163 mg/dL (82-167); COMPLEMENT C4, SERUM 29 mg/dL (14-44)
[2018-05-19] MEDS: Acetaminophen 325 MG Tab PO PRN ×3 (13:16→21:47)
[2018-05-19] MEDS: atorvaSTATin 20 MG Tab PO SCH (21:42)
[2018-05-19] MEDS: Gabapentin 300 MG Cap PO SCH (21:43)
[2018-05-20] MEDS: methylPREDNISolone Sodium Succinate 125 MG/2 ML SDV IVPUSH SCH ×2 (05:22→09:34)
[2018-05-20] MEDS ORDERED: Pantoprazole 40 MG Tab.CR PO SCH (07:30)
[2018-05-20] MEDS: Pantoprazole 40 MG Tab.CR PO SCH (07:38)
[2018-05-20] MEDS: Amoxicillin/Clavulanate K 875-125 MG Tab PO SCH ×3 (07:39→17:50)
--- NOTE | 2018-05-20 10:55 | PCM.DCSUM1 ---
Discharge Summary - Hospital Course Brief History: 73-year-old relatively healthy female who presented with right lower back pain and was found to be febrile and hypoxic. She was admitted for management of bilateral pneumonia with hypoxic respiratory failure as well as abdominal pain of undetermined etiology and right lower back pain. Diagnosis: Stroke: No - Discharge Data Discharge Date: 05/20/18 Discharge Disposition: Home, Self-Care 01 Condition: Good - Discharge Diagnosis/Problem(s) (1) Bilateral pneumonia SNOMED Code(s): 629218480 ICD Code: J18.9 - PNEUMONIA, UNSPECIFIED ORGANISM Status: Acute Current Visit: Yes Qualifiers: Pneumonia type: due to unspecified organism Lung location: lower lobe of lung Qualified Code(s): J18.1 - Lobar pneumonia, unspecified organism (2) Acute respiratory failure with hypoxia SNOMED Code(s): 60147977, 438008795 ICD Code: J96.01 - ACUTE RESPIRATORY FAILURE WITH HYPOXIA Status: Acute Current Visit: Yes (3) Biliary dyskinesia SNOMED Code(s): 939662538 ICD Code: K82.8 - OTHER SPECIFIED DISEASES OF GALLBLADDER Status: Acute Current Visit: Yes - Patient Summary/Data Consults: Consultations 05/15/18 17:16 Consult to Physician [CONS] Routine Consulting Provider: Keon Curry Courtesy Call Completed to Consulting Physician: Yes Reason for Consult: Nausea and vomiting Labs Pending at D/C: Pending labs include peripheral smear, EVIE, ANCA panel and tick studies Hospital Course: Hermila presented to the emergency room with right lower back/hip pain as well as nausea with vomiting and some abdominal pain. Workup in the emergency room revealed evidence for significant hypoxia with oxygen saturations in the 60s. Chest x-ray revealed bilateral pulmonary infiltrates. Laboratory studies revealed mild elevation of the bilirubin at 2 as well as a left shift with bandemia but a normal white blood cell count. CRP was greater than 22 and her sedimentation rate was greater than 70. Given the significant hypoxia a CT scan of the chest was undertaken to further assess the infiltrates and to assess for presence/absence of a pulmonary embolism. CT scan confirmed bilateral pneumonia with infectious etiology most likely but inflammatory a possibility. There is no evidence for pulmonary embolism. She was admitted to the hospital and started on levofloxacin for her pneumonia as well as ampicillin/sulbactam for her possible cholecystitis. Cholecystitis was suspected based on abdominal pain with nausea and bloating as well as the abnormal bilirubin and mild elevation of alkaline phosphatase. She was also started on high-dose IV steroids with the concern that this may be a vasculitis type picture given the variety of organ systems involved. By the morning after admission her temperatures have improved and normalized. She is feeling better but still requires approximately 4 L of supplemental oxygen. for further workup of potential gallbladder disease she had an MRCP which was normal. She also had a HIDA scan which showed a low ejection fraction at 20% concerning for biliary dyskinesia. The surgical team felt that urgent intervention was not needed, especially in the setting of her current pneumonia with hypoxic respiratory failure. Her symptoms of nausea with vomiting and abdominal pain have resolved. Antibiotic coverage and steroids were continued but steroids were decreased. An echocardiogram was completed in the showed normal left ventricular function and essentially no valvular abnormalities. vasculitis studies including complement, EVIE and ANCA were collected and sent to the reference lab. the morning of day 2 was uncomplicated. there was some evidence for mild volume overload and she did receive a single dose of furosemide. The patient was off supplemental oxygen at that time. She was feeling fair amount better. Laboratory studies had remained stable. At this point we were still suspicious of pneumonia as the primary infection and some biliary dyskinesia but there was still some concern for vasculitis. I elected to discontinue her steroids and monitor overnight but otherwise continue treatment. The morning of the third day of hospitalization the patient did spike another fever to 102. Otherwise clinically she had been improving. We did increase the steroids back to their previous dosing after the fever and she has been afebrile since that time. White blood cell count has remained stable throughout the first couple of days of hospitalization. Kidney function has been slowly improving. by hospital day 4 she has shown significant clinical improvement. She is requiring only a small quantity of supplemental oxygen at this point. she has remained afebrile. Laboratory studies have been stable. She has not had any abdominal pain, nausea or bloating. Vasculitis studies are still pending. She continued her improvement into the day of discharge. She is now off supplemental oxygen. She has not had any recurrence of her abdominal symptoms. Her right lower back/hip pain which I believe is related to sciatica has improved significantly. At this point she is doing very well and I think she safe for outpatient management. I think the inciting event was a bilateral pneumonia which has been improving with levofloxacin therapy. I believe the acute illness probably prompted decompensation of her gallbladder disease. Vasculitis is low on the list but given her improvement with the steroids we are planning to continue these for several more days with a taper. Unfortunately the vasculitis blood testing will not be available for several more days. She would benefit from surgical consultation and probably cholecystectomy but I would recommend holding off until after her pneumonia has resolved. If she does not have any further symptoms to suggest acute or chronic cholecystitis the cholecystectomy could be delayed until symptoms return down the road. She has follow-up scheduled for early next week. She will be returning home to [place] with her son. - Patient Instructions Diet: Regular Diet as Tolerated Activity: As Tolerated Showering/Bathing: May Shower Notify Provider of: Fever, Increased Pain, Nausea and/or Vomiting Other/Special Instructions: 1. You were in the hospital for management of bilateral pneumonia with hypoxic respiratory failure as well as biliary dyskinesia. Your pneumonia has been improving with antibiotic therapy. There is also some concern about possible vasculitis though this is somewhat unlikely. Several blood tests have been sent to a reference lab and will be returning for review next week. We will contact you with results when they are available. Additional antibiotic and steroid therapy recommendations are outlined below: - -levofloxacin 750 mg - take 1 tablet daily for the next 3 days. This is an antibiotic to help treat pneumonia. --Augmentin 875/125 mg - take 1 tablet twice daily with food for 6 more doses. This is an antibiotic that helps to treat both pneumonia and possible gallbladder infection. --Prednisone 20 mg tablets - take 40 mg daily for 3 days then 20 mg daily for 3 days then 10 mg daily for 4 days. This is an anti-inflammatory medication to help treat symptoms of the pneumonia as well as cover the possible but unlikely vasculitis. 2. Regarding the biliary dyskinesia, this is a form of chronic cholecystitis. Given your symptoms at presentation and the abnormal findings on the HIDA scan I think it would be mooney to seek surgical consultation to see if cholecystectomy is recommended. I would recommend waiting at least a week for the pneumonia to clear before considering surgery. 3. Continue your other home medications as previously prescribed. 4. Seek medical attention if you develop fever greater than 101, you have sudden onset of shortness of breath or if you have severe abdominal pain, persistent vomiting or severe diarrhea. - Discharge Plan *PRESCRIPTION DRUG MONITORING PROGRAM REVIEWED*: Not Applicable *COPY OF PRESCRIPTION DRUG MONITORING REPORT IN PATIENT KOMAL: Not Applicable Prescriptions/Med Rec: Amoxicillin/Clavulanate K [Augmentin 875-125 MG] 1 tab PO BIDMEALS #6 tablet Levofloxacin 750 mg PO DAILY #3 tablet Ondansetron [Ondansetron ODT] 4 mg PO Q6H PRN #20 tab.rapdis PRN Reason: Nausea predniSONE [Prednisone] 20 mg PO ASDIRECTED #11 tablet Home Medications: Home Meds Aspirin 1 tab PO DAILY 05/15/18 [History] atorvaSTATin [Lipitor] 1 tab PO DAILY 05/15/18 [History] Omeprazole 40 mg PO DAILY 05/18/18 [History] Amoxicillin/Clavulanate K [Augmentin 875-125 MG] 1 tab PO BIDMEALS #6 tablet [Rx] Hydrocodone/Acetaminophen [Hydrocodon-Acetaminophen 5-325] 1 tab PO Q6H PRN [History] Levofloxacin 750 mg PO DAILY #3 tablet 05/20/18 [Rx] Ondansetron [Ondansetron ODT] 4 mg PO Q6H PRN #20 tab.rapdis 05/20/18 [Rx] predniSONE [Prednisone] 20 mg PO ASDIRECTED #11 tablet 05/20/18 [Rx] Patient Handouts: Amoxicillin; Clavulanic Acid tablets, Levofloxacin tablets, Cholecystitis, [id number], Community-Acquired Pneumonia, Adult Referrals: PCP,None [Primary Care Provider] - (f/u with your primary care next week as scheduled ) - Discharge Summary/Plan Comment DC Time >30 min.: Yes (45 - coordinating f/u with PCP in [place]) - Patient Data Vitals - Most Recent: Last Vital Signs Temp 36.1 C 05/20/18 06:57 Pulse 71 05/20/18 06:57 Resp 16 05/20/18 06:57 BP 144/64 H 05/20/18 06:57 Pulse Ox 93 L 05/20/18 06:57 Weight - Most Recent: 91.263 kg I&O - Last 24 hours: Intake & Output 05/19/18 05/20/18 05/20/18 22:59 06:59 14:59 Intake Total 420 600 Output Total 900 1000 Balance -480 -400 Lab Results - Last 24 hrs: Laboratory Results - last 24 hr 05/17/18 05/20/18 05/20/18 Range/Units 04:40 04:30 04:30 WBC 11.4 H (4.5-11.0) K/uL RBC 3.93 (3.30-5.50) M/uL Hgb 12.0 (12.0-15.0) g/dL Hct 36.0 (36.0-48.0) % MCV 92 (80-98) fL MCH 31 (27-31) pg MCHC 33 (32-36) % Plt Count 309 (150-400) K/uL Sodium 141 (140-148) mmol/L Potassium 3.7 (3.6-5.2) mmol/L Chloride 104 (100-108) mmol/L Carbon Dioxide 27 (21-32) mmol/L Anion Gap 10.2 (5.0-14.0) mmol/L BUN 23 H (7-18) mg/dL Creatinine 1.0 (0.6-1.0) mg/dL Est Cr Clr Drug Dosing 51.50 mL/min Estimated GFR (MDRD) 55 L (>60) Glucose 196 H (74-106) mg/dL Calcium 8.2 L (8.5-10.1) mg/dL Complement C3 163 (82-167) mg/dL Complement C4 29 (14-44) mg/dL NIKO Results - Last 24 hrs: Microbiology 05/15/18 17:30 Aerobic Blood Culture - Preliminary Blood - Arm, Right NO GROWTH AFTER 4 DAYS Anaerobic Blood Culture - Preliminary NO GROWTH AFTER 4 DAYS 05/15/18 17:20 Aerobic Blood Culture - Preliminary Blood - Arm, Right NO GROWTH AFTER 4 DAYS Anaerobic Blood Culture - Preliminary NO GROWTH AFTER 4 DAYS Med Orders - Current: Current Medications Acetaminophen (Tylenol) 650 mg PO Q4H PRN PRN Reason: Pain (Mild 1-3)/fever Last Admin: 05/19/18 21:47 Dose: 650 mg Albuterol (Proventil Neb Soln) 2.5 mg NEB Q4H PRN PRN Reason: Shortness of Breath Amoxicillin/Clavulanate Potassium (Augmentin 875 Mg/125 Mg) 1 tab PO BIDMEALS [facility] Last Admin: 05/20/18 07:39 Dose: 1 tab Atorvastatin Calcium (Lipitor) 40 mg PO BEDTIME [facility] Last Admin: 05/19/18 21:42 Dose: 40 mg Gabapentin (Neurontin) 300 mg PO BEDTIME [facility] Last Admin: 05/19/18 21:43 Dose: 300 mg Hydromorphone HCl (Dilaudid) 0.5 mg IVPUSH Q2H PRN PRN Reason: Pain (severe 7-10) Last Admin: 05/17/18 22:37 Dose: 0.25 mg Levofloxacin 250 mg/ (Levofloxacin 500 mg) 750 mg PO ACBREAKFAST [facility] Last Admin: 05/20/18 07:44 Dose: 750 mg Magnesium Hydroxide (Milk Of Magnesia) 30 ml PO Q12H PRN PRN Reason: Constipation Ondansetron HCl (Zofran) 4 mg IV Q4H PRN PRN Reason: Nausea/Vomiting Last Admin: 05/18/18 09:10 Dose: 4 mg Oxycodone HCl (Oxycodone) 5 mg PO Q4H PRN PRN Reason: Pain (moderate 4-6) Last Admin: 05/17/18 18:01 Dose: 5 mg Pantoprazole Sodium (Protonix) 40 mg PO ACBREAKFAST [facility] Last Admin: 05/20/18 07:38 Dose: 40 mg Polyethylene Glycol (Miralax) 17 gm PO DAILY PRN PRN Reason: Constipation Last Admin: 05/16/18 18:19 Dose: 17 gm Prednisone (Prednisone) 20 mg PO ONETIME ONE Stop: 05/20/18 15:01 Senna/Docusate Sodium (Senna Plus) 1 tab PO BID PRN PRN Reason: Constipation Last Admin: 05/17/18 02:52 Dose: 1 tab Sodium Chloride (Saline Flush) 10 ml FLUSH ASDIRECTED PRN PRN Reason: Keep Vein Open Discontinued Medications Atorvastatin Calcium (Lipitor) 40 mg PO DAILY [facility] Last Admin: 05/17/18 08:15 Dose: 40 mg Al Hydroxide/Mg Hydroxide 15 (ml/ Lidocaine HCl 15 ml) 0 ml PO ONETIME ONE Stop: 05/15/18 12:51 Last Admin: 05/15/18 13:05 Dose: 30 ml Furosemide (Lasix) 20 mg IVPUSH ONETIME ONE Stop: 05/18/18 09:31 Last Admin: 05/18/18 10:40 Dose: 20 mg Gabapentin (Neurontin) 300 mg PO ONETIME ONE Stop: 05/17/18 21:28 Last Admin: 05/17/18 21:45 Dose: 300 mg Hydrocortisone Sodium Succinate (Solu-Cortef) 100 mg IVPUSH Q6H [facility] Last Admin: 05/16/18 03:55 Dose: 100 mg Hydrocortisone Sodium Succinate (Solu-Cortef) 100 mg IVPUSH Q12H [facility] Last Admin: 05/16/18 21:18 Dose: 100 mg Hydromorphone HCl (Dilaudid) 0.25 mg IVPUSH Q2H PRN PRN Reason: Pain Last Admin: 05/16/18 00:35 Dose: 0.25 mg Sodium Chloride (Normal Saline) 1,000 mls @ 999 mls/hr IV ASDIRECTED [facility] Last Admin: 05/15/18 13:05 Dose: 999 mls/hr Sodium Chloride (Normal Saline) 100 mls @ 3 mls/sec IV ASDIRECTED [facility] Last Admin: 05/15/18 16:54 Dose: 3 mls/sec Ampicillin Sodium/Sulbactam (Sodium 1.5 gm/ Sodium Chloride) 50 mls @ 100 mls/ hr IV Q6HR [facility] Last Admin: 05/19/18 03:57 Dose: 100 mls/hr Lactated Ringer's (Ringers, Lactated) 1,000 mls @ 250 mls/hr IV ASDIRECTED [facility] Stop: 05/15/18 21:17 Last Admin: 05/15/18 17:59 Dose: 250 mls/hr Lactated Ringer's (Ringers, Lactated) 1,000 mls @ 25 mls/hr IV ASDIRECTED [facility] Last Admin: 05/16/18 05:41 Dose: 125 mls/hr Levofloxacin/Dextrose 750 mg/ (Premix) 150 mls @ 100 mls/hr IV Q48H [facility] Last Admin: 05/15/18 19:49 Dose: 100 mls/hr Lactated Ringer's (Ringers, Lactated) 1,000 mls @ 25 mls/hr IV ASDIRECTED [facility] Levofloxacin/Dextrose 750 mg/ (Premix) 150 mls @ 100 mls/hr IV Q24H [facility] Last Admin: 05/17/18 08:36 Dose: 100 mls/hr Iopamidol (Isovue-370 (76%)) 100 ml IV . DIRECTED [facility] Last Admin: 05/15/18 16:54 Dose: 80 ml Ketorolac Tromethamine (Toradol) 30 mg IVPUSH ONETIME ONE Stop: 05/15/18 14:41 Last Admin: 05/15/18 15:00 Dose: 30 mg Methylprednisolone Sodium Succinate (Solu-Medrol) 62.5 mg IVPUSH Q6H [facility] Last Admin: 05/20/18 09:34 Dose: 62.5 mg Ondansetron HCl (Zofran) 4 mg IVPUSH ONETIME ONE Stop: 05/15/18 12:52 Last Admin: 05/15/18 13:05 Dose: 4 mg Pantoprazole Sodium (Protonix) 40 mg PO ONETIME ONE Stop: 05/18/18 21:01 Last Admin: 05/18/18 20:55 Dose: 40 mg Potassium Chloride (Klor-Con M20) 40 meq PO ONETIME ONE Stop: 05/19/18 10:31 Last Admin: 05/19/18 11:00 Dose: 40 meq - Exam Quality Assessment: Denies: Supplemental Oxygen General: Reports: Alert, Oriented, Cooperative, No Acute Distress Neck: Reports: Supple Lungs: Reports: Normal Respiratory Effort Cardiovascular: Reports: Regular Rhythm, Bradycardia GI/Abdominal Exam: Soft, No Distention Extremities: No Pedal Edema Psy/Mental Status: Reports: Alert, Normal Affect
[2018-05-20] MEDS ORDERED: predniSONE 20 MG Tab PO ONE (15:00)
[2018-05-20 16:10] LABS: BABESIA MICROTI IGG <1:10 (Neg:<1:10); BABESIA MICROTI IGM <1:10 (Neg:<1:10)
[2018-05-20 21:06] LABS: BASOS 0 % (Not Estab.); COMMENTS/RECOMMENDATIONS Note: (.); EOS 0 % (Not Estab.); HEMATOCRIT 36.8 % (34.0-46.6); IMMATURE GRANULOCYTES 0 % (Not Estab.); LYMPHS 16 % (Not Estab.); LYMPHS (ABSOLUTE) 1.3 x10E3/uL (0.7-3.1); MCH 30.6 pg (26.6-33.0); MCHC 32.6 g/dL (31.5-35.7); MCV 94 fL (79-97); MONOCYTES 9 % (Not Estab.); MONOCYTES(ABSOLUTE) 0.7 x10E3/uL (0.1-0.9); NEUTROPHILS 75 % (Not Estab.); NEUTROPHILS (ABSOLUTE) 6.3 x10E3/uL (1.4-7.0); PATHOLOGIST Note: (.); PLATELETS 193 x10E3/uL (150-379); PLTS Note: (.); RBC 3.92 x10E6/uL (3.77-5.28); RBC Note: (.); RDW 13.4 % (12.3-15.4); WBC 8.4 x10E3/uL (3.4-10.8); WBC Note: (.)
[2018-05-21 11:10] LABS: ANTI-CENTROMERE B ANTIBODIES <0.2 AI (0.0-0.9); ANTI-DNA (DS) AB QN <1 IU/mL (0-9); ANTI-JO-1 <0.2 AI (0.0-0.9); ANTICHROMATIN ANTIBODIES 0.2 AI (0.0-0.9); ANTIRIBOSOMAL P ANTIBODIES 0.2 AI (0.0-0.9); ANTISCLERODERMA-70 ANTIBODIES <0.2 AI (0.0-0.9); RNP ANTIBODIES 0.2 AI (0.0-0.9); SJOGREN'S ANTI-SS-A 0.3 AI (0.0-0.9); SJOGREN'S ANTI-SS-B <0.2 AI (0.0-0.9); SMITH ANTIBODIES 0.2 AI (0.0-0.9); SMITH/RNP ANTIBODIES <0.2 AI (0.0-0.9)
[2018-05-22 15:08] LABS: ANTIMYELOPEROXIDASE (MPO) ABS <9.0 U/mL (0.0-9.0); ANTIPROTEINASE 3 (PR-3) ABS <3.5 U/mL (0.0-3.5); ATYPICAL PANCA <1:20 titer (Neg:<1:20); CYTOPLASMIC (C-ANCA) <1:20 titer (Neg:<1:20); PERINUCLEAR (P-ANCA) <1:20 titer (Neg:<1:20)
--- NOTE | 2018-05-23 13:26 | CONS ---
DATE OF SERVICE: 05/16/2018 REFERRING PHYSICIAN: CONSULTING PHYSICIAN: Keon Curry MD HISTORY OF PRESENT ILLNESS: This is a 73-year-old female from [place], [place] presenting with increased abdominal pain. Within last two days, she had a CT scan of the abdomen, which apparently was relatively unremarkable. She presents now with increasing abdominal pain along with some elevation of the liver function tests. The total bilirubin 2.0 and alkaline phosphatase significantly elevated at 263. AST and ALT are only mildly elevated at 72 and 67 respectively. Overnight, these have improved and the patient overall felt quite a bit better and she is tolerating diet without difficulty. The labs today showed bilirubin down to 1.2 and alkaline phosphatase does remain mildly elevated. The patient also was noted to be somewhat hypoxic, at this point probably, she has degree of pneumonia which is being treated with antibiotics and pulmonary toilet. Examination of the abdomen shows there is some mild discomfort in the right upper quadrant, otherwise is unremarkable. Additional testing was obtained after discussion of the case with Dr. Claudio yesterday. An MRCP was essentially unremarkable. She did have a CCK-stimulated HIDA scan, which showed a below normal ejection fraction of 19% and also the CCK injection caused to a large extent a reproduction of her pain. Overall, the patient apparently most likely having some episodes of biliary colic made to be more inflammation in the gallbladder that is being reflected in imaging based on the elevation of the bilirubin yesterday. The patient optimaly would be tuned up with cardiopulmonary status and undergo a laparoscopic cholecystectomy. She will likely try to have this back down at home which would make the logistics of managing both her and him along with family much easier task. This was discussed with the patient and Dr. Adams, who will attempt to get her ready for discharge and the reports regarding abdominal findings should be sent with her. Keon Curry MD /[id number]
[2018-05-23 15:16] LABS: HGE IGG TITER Negative (Neg:<1:64); HGE IGM TITER Negative (Neg:<1:20)
== END 2018-05-20 15:35 | disposition home or self-care (01) | DRG 193 ==
LOC: JP.ED 11:17 → JP.ICU 16:24 → JP.MS 05-17 10:45
PROVIDERS: ADMIT Hospitalist; ATTEND Internal Medicine
DX: J18.1 Lobar pneumonia, unspecified organism (principal); J96.01 Acute respiratory failure with hypoxia; E87.1 Hypo-osmolality and hyponatremia; N18.3 Chronic kidney disease, stage 3 (moderate); I77.6 Arteritis, unspecified; R50.9 Fever, unspecified; K82.8 Other specified diseases of gallbladder; R74.8 Abnormal levels of other serum enzymes; M54.9 Dorsalgia, unspecified; G89.29 Other chronic pain; Z79.82 Long term (current) use of aspirin; Z88.1 Allergy status to other antibiotic agents; E87.70 Fluid overload, unspecified
CPT/HCPCS: 36415; 36600; 71046 ×2; 80053; 81001; 82803; 83605; 83690; 85025; 86140; 86666 ×2; 86753 ×2; 96361; 96374; 96375; 99284; 99285; A9270 ×2; J1885; J2405; J7030; 71045; 71045-26; 71275; 74181; 74181-26; 78227; 78227-26; 80048; 82248; 83516; 83520; 83735; 84443; 84484; 85027; 85651; 86038; 86160-59; 86225; 86235; 86256; 86628; 87040; 93005; 93306; J0287; J1170; J1720; J1940; J1956; J2930; J7050; J7120; Q9967